=== PATIENT | male | born 1955 | race Caucasian/White ===

== ENCOUNTER 2018-04-11 10:00 | Outpatient (RCR) | payer OTHER, MEDICAID, SELFPAY | END 2018-04-19 11:57 | LOC: CAR 10:00 | PROVIDERS: PCP Family Medicine; Visit Provider Family Medicine | DX: Z95.5 Presence of coronary angioplasty implant and graft (principal) | CPT/HCPCS: 93798 ==

== ENCOUNTER → 2020-12-02 12:52 | Outpatient (CLI) | payer MEDICARE, SELFPAY ==
[2020-12-03 09:20] LABS: Add Manual Diff / Slide Review NO; Basophils Absolute Auto 100 /uL (0-100); Basophils Percent Auto 1.2 % (0-2); Eosinophils Absolute Auto 200 /uL (0-450); Eosinophils Percent Auto 3.1 % (2-4); Hematocrit 51.4 % (41-53); Hemoglobin 17.4 g/dL (13.5-17.5); Lymphocytes Absolute Auto 1900 /uL (1100-4500); Lymphocytes Percent Auto 26.2 % (25-40); Mean Corpuscular HGB Conc 33.9 % (30-36); Mean Corpuscular Hemoglobin 29.9 PG (26-34); Mean Corpuscular Volume 88.2 fL (80-100); Monocytes Absolute Auto 400 /uL (0-900); Monocytes Percent Auto 5.5 % (3-14); Neutrophils Absolute Auto 4700 /uL (1500-7000); Platelet Count 216 X10^3/uL (150-400); Red Blood Cell Count 5.83 X10^6/uL (4.5-5.9); Red Cell Distribution Width 13.6 % (11.6-14.8); White Blood Cell Count 7.3 X10^3/uL (4.5-11.0)
[2020-12-03 09:24] LABS: HEMOLYSIS < 15 (0-50)
[2020-12-03 09:29] LABS: Alanine Aminotransferase 25 IU/L (<50); Albumin 4.1 g/dL (3.5-5.0); Albumin Globulin Ratio 1.4 (1.0-2.8); Alkaline Phosphatase 80 U/L (38-126); Aspartate Aminotransferase 44 IU/L (17-59); BUN Creatinine Ratio 19.8 (6-22); Bilirubin Total 0.3 mg/dL (0.2-1.3); Blood Urea Nitrogen 17 mg/dL (9-20); Carbon Dioxide 30 mmol/L (22-32); Chloride 97 mmol/L (98-107); Cholesterol 134 mg/dL (140-199); Estimated Glomerular Filt Rate > 60.0 mL/min (>60); Globulin 2.9 g/dL (1.7-4.1); Glucose 312 mg/dL (80-110); HDL Cholesterol 26 mg/dL (40-60); LDL Cholesterol Calculated 46 mg/dL (<100); Potassium 4.1 mmol/L (3.4-5.1); Sodium 137 mmol/L (137-145); Triglycerides 309 mg/dL (35-150)
[2020-12-03 10:01] LABS: TSH w/ Reflex to FT4 1.49 uIU/mL (0.47-4.68)
[2020-12-03 10:05] LABS: Creatinine Urine Random 83.7 mg/dL
[2020-12-03 10:11] LABS: Microalbumin Urine Random > 19.0 mg/dL (0-1.6)
[2020-12-03 10:16] LABS: Prostate Specific Antigen Scrn 0.586 ng/mL (0.1-4.0)
[2020-12-03 15:25] LABS: Hemoglobin A1C% w Est Avg Glu 12.9 % (4.0-6.0)
== END ==
PROVIDERS: PCP Family Medicine; Visit Provider Family Medicine
DX: E11.9 Type 2 diabetes mellitus without complications (principal); I25.10 Atherosclerotic heart disease of native coronary artery without angina pectoris; Z12.5 Encounter for screening for malignant neoplasm of prostate
CPT/HCPCS: 80053; 80061; 82043; 82570; 83036; 84443; 85025; G0103

== ENCOUNTER → 2021-04-09 09:58 | Outpatient (CLI) | payer MEDICARE, SELFPAY ==
[2021-04-09 19:20] LABS: BUN Creatinine Ratio 19.6 (6-22); Blood Urea Nitrogen 19 mg/dL (9-20); Calcium 9.5 mg/dL (8.4-10.2); Carbon Dioxide 25 mmol/L (22-32); Chloride 105 mmol/L (98-107); Estimated Glomerular Filt Rate > 60.0 mL/min (>60); Glucose 194 mg/dL (80-110); HEMOLYSIS 17 (0-50); Potassium 4.6 mmol/L (3.4-5.1); Sodium 138 mmol/L (137-145)
== END ==
PROVIDERS: PCP Family Medicine; Visit Provider Family Medicine
DX: E11.9 Type 2 diabetes mellitus without complications (principal); I10 Essential (primary) hypertension; I25.10 Atherosclerotic heart disease of native coronary artery without angina pectoris
CPT/HCPCS: 80048; 83036

== ENCOUNTER → 2022-01-02 12:12 | Outpatient (CLI) | payer MEDICARE, SELFPAY ==
[2022-01-02 19:09] LABS: Prostate Specific Antigen Scrn 0.535 ng/mL (0.1-4.0)
[2022-01-02 19:25] LABS: Hemoglobin A1C% w Est Avg Glu 10.2 % (4.0-6.0)
== END ==
PROVIDERS: PCP Family Medicine; Visit Provider Physician Assistant
DX: E11.65 Type 2 diabetes mellitus with hyperglycemia (principal); Z12.5 Encounter for screening for malignant neoplasm of prostate
CPT/HCPCS: 83036; G0103

== ENCOUNTER → 2022-01-13 13:52 | Outpatient (CLI) | payer MEDICARE, SELFPAY ==
[2022-01-13 18:44] LABS: Add Manual Diff / Slide Review NO; Basophils Absolute Auto 0 /uL (0-100); Basophils Percent Auto 0.4 % (0-2); Eosinophils Absolute Auto 200 /uL (0-450); Eosinophils Percent Auto 2.4 % (2-4); Hematocrit 51.9 % (41-53); Hemoglobin 17.4 g/dL (13.5-17.5); Lymphocytes Absolute Auto 2000 /uL (1100-4500); Lymphocytes Percent Auto 30.9 % (25-40); Mean Corpuscular HGB Conc 33.5 % (30-36); Mean Corpuscular Hemoglobin 29.3 PG (26-34); Mean Corpuscular Volume 87.4 fL (80-100); Monocytes Absolute Auto 400 /uL (0-900); Monocytes Percent Auto 6.4 % (3-14); Neutrophils Absolute Auto 3900 /uL (1500-7000); Neutrophils Percent Auto 59.9 % (50-75); Platelet Count 211 X10^3/uL (150-400); Red Blood Cell Count 5.94 X10^6/uL (4.5-5.9); Red Cell Distribution Width 14.1 % (11.6-14.8); White Blood Cell Count 6.5 X10^3/uL (4.5-11.0)
[2022-01-13 19:03] LABS: Alanine Aminotransferase 35 IU/L (<50); Albumin 4.7 g/dL (3.5-5.0); Albumin Globulin Ratio 1.6 (1.0-2.8); Alkaline Phosphatase 69 U/L (38-126); Aspartate Aminotransferase 42 IU/L (17-59); BUN Creatinine Ratio 24.5 (6-22); Bilirubin Total 0.7 mg/dL (0.2-1.3); Blood Urea Nitrogen 26 mg/dL (9-20); Calcium 9.7 mg/dL (8.4-10.2); Carbon Dioxide 25 mmol/L (22-32); Chloride 100 mmol/L (98-107); Estimated Glomerular Filt Rate > 60 mL/min (>60); Globulin 2.9 g/dL (1.7-4.1); Glucose 128 mg/dL (80-110); HEMOLYSIS 17 (0-50); Magnesium 2.1 mg/dL (1.6-2.3); Potassium 4.4 mmol/L (3.4-5.1); Sodium 137 mmol/L (137-145); Total Protein 7.6 g/dL (6.3-8.2)
[2022-01-13 19:23] LABS: Vitamin D 25 Hydroxy (D3) 26.4 ng/mL (30.0-100.0)
== END ==
PROVIDERS: PCP Family Medicine; Visit Provider Physician Assistant
DX: I25.10 Atherosclerotic heart disease of native coronary artery without angina pectoris (principal); Z12.5 Encounter for screening for malignant neoplasm of prostate; E55.9 Vitamin D deficiency, unspecified; E11.65 Type 2 diabetes mellitus with hyperglycemia; I10 Essential (primary) hypertension; I95.2 Hypotension due to drugs; R53.83 Other fatigue
CPT/HCPCS: 80053; 82306; 83735; 85025; G0103

== ENCOUNTER 2022-01-23 21:17 | Observation (INO) | payer MEDICARE, SELFPAY ==
[2022-01-23 21:21] VITALS: BP 171/96; PULSE 92; RESP 16; TEMP 36.3; O2SAT 96; BMI 30.7
--- NOTE | 2022-01-23 21:43 | DI.CT.S_ITS ---
PROCEDURE: CT ANGIO HEAD AND NECK INDICATIONS: L side facial droop TECHNIQUE: After the administration of intravenous contrast, 1 mm thick sections acquired from the aortic arch through the [place]. Post-contrast 4.5 mm thick sections then re-acquired from the foramen magnum to the vertex. 3-dimensional ymxdkom-oxblqmqbf-qislhtrquh (MIP) and/or volume rendering reformats were acquired of the central intracranial vasculature and neck separately. For radiation dose reduction, the following was used: automated exposure control, adjustment of mA and/or kV according to patient size. COMPARISON: [facility], CT, CT HEAD/BRAIN WO CON, 01/23/2022, 21:45. FINDINGS: Image quality: Excellent. HEAD CT ANGIOGRAPHY: Anterior circulation: Intracranial internal carotid arteries are normal in size and flow. The flow within the paired anterior cerebral arteries is normal and symmetric. The flow within the middle cerebral arteries is normal and symmetric. The anterior communicating artery is seen. No aneurysms are seen. No area of abnormal intracranial enhancement is seen. Posterior circulation: Visualized portions of the vertebral arteries demonstrate normal caliber, and join to form a normal appearing basilar artery. Flow within the posterior cerebral arteries is normal and symmetric. No aneurysms are seen. NECK CT ANGIOGRAPHY: Carotid system: The great vessels demonstrate a conventional anatomy as they arise from the aortic arch. The origins of the common carotid arteries appear patent. The common carotid arteries demonstrate normal caliber and courses. The bifurcation regions are both widely patent. The internal carotid arteries demonstrate normal calibers and courses. Posterior circulation: The origins of the vertebral arteries both appear widely patent. The more superior extracranial portions of both vertebral arteries also demonstrate normal courses and calibers. They join to form a normal appearing basilar artery. Soft tissues: Visualized neck soft tissues demonstrate no suspicious abnormalities. Bones: No suspicious bony lesions. Visualized cervical spine appears normally aligned. IMPRESSION: 1. No area of abnormal intracranial enhancement. No CT evidence of acute intracranial bleed, midline shift or mass effect. 2. No hemodynamically significant stenosis or aneurysm is seen in intracranial circulation. 3. No hemodynamically significant stenosis or aneurysm is seen in bilateral neck arteries. Any quantitative measurements of stenosis were performed using NASCET criteria. Dictated by: Justice Hood M.D. on 01/23/2022 at 22:18 Approved by: Justice Hood M.D. on 01/23/2022 at 22:21
--- NOTE | 2022-01-23 21:43 | DI.CT.S_ITS ---
PROCEDURE: CT HEAD/BRAIN WO CON INDICATIONS: L side facial droop TECHNIQUE: Noncontrast 4.5 mm thick angled axial sections acquired from the foramen magnum to the vertex, with coronal and sagittal reformats. For radiation dose reduction, the following was used: automated exposure control, adjustment of mA and/or kV according to patient size. COMPARISON: None. FINDINGS: Image quality: Excellent. CSF spaces: Basal cisterns are patent. No extra-axial fluid collections. The ventricles are symmetric in size and shape. Brain: No intracranial bleeds or masses. There is cerebral volume loss for age, with resultant ventricular and sulcal prominence. There are periventricular and deep white matter chronic small vessel ischemic changes. There is intracranial internal carotid artery atherosclerosis. Skull and face: Calvarium and visualized facial bones appear intact, without suspicious lesions. Sinuses: Visualized sinuses and mastoids are clear. IMPRESSION: 1. No CT evidence of acute intracranial abnormalities. 2. Age-appropriate atrophy and mild white matter chronic small vessel ischemic changes. Dictated by: Justice Hood M.D. on 01/23/2022 at 22:16 Approved by: Justice Hood M.D. on 01/23/2022 at 22:17
--- NOTE | 2022-01-23 22:01 | PC.NURSE ---
pt noted with left side facial droop asymmetrical smile, unable to completely close left eye, left sided facial numbness, pt states tingling and numbness in other extremities normal for his neruopathy
[2022-01-23 22:03] LABS: Add Manual Diff / Slide Review NO; Basophils Absolute Auto 100 /uL (0-100); Basophils Percent Auto 1.3 % (0-2); Eosinophils Absolute Auto 300 /uL (0-450); Eosinophils Percent Auto 3.9 % (2-4); Hematocrit 47.5 % (41-53); Hemoglobin 16.3 g/dL (13.5-17.5); Lymphocytes Absolute Auto 2200 /uL (1100-4500); Lymphocytes Percent Auto 30.3 % (25-40); Mean Corpuscular HGB Conc 34.4 % (30-36); Mean Corpuscular Hemoglobin 29.4 PG (26-34); Mean Corpuscular Volume 85.7 fL (80-100); Monocytes Absolute Auto 400 /uL (0-900); Monocytes Percent Auto 5.4 % (3-14); Neutrophils Absolute Auto 4300 /uL (1500-7000); Neutrophils Percent Auto 59.1 % (50-75); Platelet Count 190 X10^3/uL (150-400); Red Blood Cell Count 5.54 X10^6/uL (4.5-5.9); Red Cell Distribution Width 14.4 % (11.6-14.8); White Blood Cell Count 7.3 X10^3/uL (4.5-11.0)
[2022-01-23 22:11] LABS: Prothrombin Time 11.7 SECONDS (10.1-12.7)
[2022-01-23 22:13] LABS: PTT Partial Thromboplastin Tim 37 SECONDS (26.4-36.2)
[2022-01-23 22:17] LABS: Alanine Aminotransferase 30 IU/L (<50); Albumin 4.3 g/dL (3.5-5.0); Albumin Globulin Ratio 1.4 (1.0-2.8); Alkaline Phosphatase 50 U/L (38-126); Aspartate Aminotransferase 36 IU/L (17-59); BUN Creatinine Ratio 18.8 (6-22); Bilirubin Total 0.6 mg/dL (0.2-1.3); Blood Urea Nitrogen 18 mg/dL (9-20); Calcium 9.2 mg/dL (8.4-10.2); Carbon Dioxide 21 mmol/L (22-32); Chloride 106 mmol/L (98-107); Creatine Kinase 102 U/L (55-170); Estimated Glomerular Filt Rate > 60 mL/min (>60); Glucose 129 mg/dL (80-110); Lipase 71 U/L (23-300); Potassium 4.1 mmol/L (3.4-5.1); Sodium 137 mmol/L (137-145); Total Protein 7.3 g/dL (6.3-8.2)
[2022-01-23 22:26] LABS: Ethanol (ETOH) < 10 mg/dL
[2022-01-23 22:28] LABS: Troponin I < 0.012 ng/mL (0.01-0.034)
[2022-01-23 22:32] LABS: CKMB % Relative Index 1.8 % (1.5-5.0); Creatine Kinase MB 1.81 ng/mL (<2.37); HEMOLYSIS 19 (0-50)
--- NOTE | 2022-01-23 22:49 | ED.NEUROSD ---
HPI - Neuro Symptoms/Deficit General Chief Complaint: Neuro Symptoms/Deficit Stated Complaint: Possible stroke Time Seen by Provider: 01/23/22 21:41 Source: patient Mode of arrival: Ambulatory History of Present Illness HPI Narrative: Patient is a 66-year-old male who is here for evaluation high potential stroke. He states that earlier this week he had some episodes where he was having some vision changes. He does wear corrective lenses but felt like they were not working appropriately has also some lightheadedness. He states this was about the time that he started cyclobenzaprine that was ordered by his primary provider. He is unsure if this started this medication and his vision and lightheadedness were related. Earlier today his states that he was having some problems speaking. Patient also thought that he was having some word-finding issues. His the day went on he started have drooping of the left side of his face. This occurred more than 4-1/2 hours ago. Has been persistent since then. 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 He is followed by the [facility] for this. He denies any new extremity neurologic issues. On Anticoagulants: No Related Data Home Medications Medication Instructions Recorded Confirmed aspirin 81 mg tablet,delayed 81 mg PO DAILY 11/27/20 01/24/22 release (Enteric Coated Aspirin) semaglutide (Ozempic) mg SUBCUT 01/23/22 metformin 1,000 mg tablet 1,000 mg PO BID 01/24/22 01/24/22 Previous Rx's Medication Instructions Recorded nitroglycerin 0.4 mg sublingual 0.4 mg SUBLINGUAL Q5M PRN #30 tab 04/15/21 tablet atorvastatin 40 mg tablet See Rx Instructions .ROUTE 07/02/21 .COMPLEX #30 tab empagliflozin 25 mg tablet See Rx Instructions .ROUTE 08/04/21 (Jardiance) .COMPLEX #30 tab cyclobenzaprine 5 mg tablet 5 - 10 mg PO TID PRN #40 tab 01/13/22 cholecalciferol (vitamin D3) 25 25 mcg PO DAILY #30 cap 01/14/22 mcg (1,000 unit) capsule Allergies Allergy/AdvReac Type Severity Reaction Status Date / Time lisinopril Allergy Cough Verified 01/13/22 13:23 lithium AdvReac Severe tremmors Verified 01/13/22 13:23 venlafaxine [From Effexor] AdvReac Severe Muscle Verified 01/13/22 13:23 stiffness and weakness. Review of Systems Constitutional Constitutional: Denies frequent falls and Denies headache(s) Eyes Eyes: Reports change in vision ENT Ears, Nose, Mouth, and Throat: Denies headache(s) Cardiovascular Cardiovascular: Denies chest pain, Denies rapid heart rate and Denies dyspnea Respiratory Respiratory: Denies cough and Denies dyspnea Gastrointestinal Gastrointestinal: Reports system reviewed and no additional complaints, except as documented Musculoskeletal Musculoskeletal: Reports system reviewed and no additional complaints, except as documented Integumentary/Breasts Skin/Breast: Reports system reviewed and no additional complaints, except as documented Neurologic Neurologic: Reports system reviewed and no additional complaints, except as documented, Reports as per HPI, Denies frequent falls and Denies headache(s) Psychiatric Psychiatric: Reports system reviewed and no additional complaints, except as documented Hematologic/Lymphatic On Anticoagulants: No Allergic/Immunologic Allergic/Immunologic: Reports system reviewed and no additional complaints, except as documented Patient History Medical History Bipolar I disorder Bronchitis with chronic airway obstruction (~11/2017) Charcot Dania Tooth muscular atrophy Chronic post-traumatic stress disorder (PTSD) Facial palsy Pulmonary emphysema Surgical History History of appendectomy History of total right hip replacement Social History details: Adopted, family history unknown household members: significant other Smoking Status: Former smoker substance use type: former substance user Smoking Status: Former smoker alcohol intake frequency: 0-2 drinks per day Substance Use Type: does not use Exam Initial Vital Signs Initial Vital Signs: Vital Signs Temperature 97.4 F L 01/23/22 21:21 Pulse Rate 92 H 01/23/22 21:21 Respiratory Rate 16 01/23/22 21:21 Blood Pressure 171/96 H 01/23/22 21:21 Pulse Oximetry 96 01/23/22 21:21 Const General: cooperative, comfortable and well developed HENMT Head: normal to inspection and normocephalic Eyes Pupils: PERRL EOM: EOM intact bilaterally Resp Effort & Inspection: normal respiratory effort Auscultation: clear to auscultation bilaterally Cardio Rate: regular rate Rhythm: regular rhythm GI Inspection: normal to inspection Skin General: no rashes or lesions noted Neuro General: patient alert, patient awake, patient oriented x3 and moves all extremities Cognition: normal cognition Extrem General: normal to inspection and capillary refill normal Scores NIH Stroke Scale Level of Conciousness: Alert, keenly responsive Ask month/age: Answers both questions correctly. Open/close eyes, close hand: Performs both tasks correctly Best gaze horizontal: Normal Visual payton: No visual loss Facial palsy: Complete paralysis, absence of movement in the upper and lower face Left arm drift: No drift for full 10 sec Right arm drift: No drift for full 10 sec Left leg drift: No drift for full 5 sec Right leg drift: No drift for full 5 sec Limb ataxia: Absent Sensory on face/arms/legs: Normal, no sensory loss Best language: No aphasia, normal Dysarthria: Normal Extinction or inattention: No abnormality Total NIH Stroke scale score: 3 Course Orders Ordered: ED Orders 01/23/22 21:43 CT angio head and neck Stat CT head/brain wo con Stat EKG-12 Lead Stat 01/23/22 21:55 Complete Blood Count AUTO DIFF Stat Comprehensive Metabolic Panel Stat Ethanol (ETOH) Stat Lipase Stat Partial Thromboplastin Time Stat Prothrombin Time INR Stat Troponin & CK Cardiac Panel Stat 01/23/22 23:43 MR stroke Stat 01/24/22 00:33 COVID19 -Nasal RAPID/Pre-Proc Stat Acetaminophen (Acetaminophen 325 Mg Tablet) 650 mg PO Q6HR [facility] Aspirin (Aspirin Ec 81 Mg Tablet) 81 mg PO DAILY [facility] Atorvastatin Calcium (Atorvastatin 20 Mg Tablet) 40 mg PO BEDTIME [facility] Cyclobenzaprine HCl (Cyclobenzaprine 10 Mg Tablet) 5 mg PO TID PRN PRN Reason: Muscle Spasm Last Admin: 01/24/22 01:39 Dose: 5 mg Documented by: MEGAN Naloxone HCl (Naloxone 0.4 Mg/Ml Vial) 0.2 mg IV Q2MIN PRN PRN Reason: Opiate Reversal Naproxen (Naproxen 250 Mg Tablet) 500 mg PO BID PRN PRN Reason: pain Sodium Chloride (Sodium Chloride 0.9% Flush) 10 ml IV BID [facility] Last Admin: 01/24/22 01:39 Dose: 10 ml Documented by: MEGAN Discontinued Medications Non-Formulary Medication (Cyclobenzaprine) 5 mg PO TID PRN PRN Reason: muscle spasm Vital Signs Vital signs: Vital Signs - 8 hr 01/23/22 21:21 Temperature 97.4 F L Pulse Rate 92 H Respiratory Rate 16 Blood Pressure 171/96 H Pulse Oximetry 96 MDM - Neuro Symptoms/Deficit Lab Data Attestation: I reviewed the patient's lab results. Result diagrams: 01/23/22 21:55 01/23/22 21:55 Labs: Lab Results 01/23/22 01/23/22 01/23/22 Range/Units 21:55 21:55 21:55 WBC 7.3 (4.5-11.0) X10^3/uL RBC 5.54 (4.5-5.9) X10^6/uL Hgb 16.3 (13.5-17.5) g/dL Hct 47.5 (41-53) % MCV 85.7 (80-100) fL MCH 29.4 (26-34) PG MCHC 34.4 (30-36) % RDW 14.4 (11.6-14.8) % Plt Count 190 (150-400) X10^3/uL Neut % (Auto) 59.1 (50-75) % Lymph % (Auto) 30.3 (25-40) % [place] % (Auto) 5.4 (3-14) % Eos % (Auto) 3.9 (2-4) % Baso % (Auto) 1.3 (0-2) % Neut # (Auto) 4300 (4525-3253) /uL Lymph # (Auto) 2200 (9336-2361) /uL [place] # (Auto) 400 (0-900) /uL Eos # (Auto) 300 (0-450) /uL Baso # (Auto) 100 (0-100) /uL PT 11.7 (10.1-12.7) SECONDS INR 1.0 (0.9-1.3) APTT 37 H (26.4-36.2) SECONDS Sodium 137 (137-145) mmol/L Potassium 4.1 (3.4-5.1) mmol/L Chloride 106 (98-107) mmol/L Carbon Dioxide 21 L (22-32) mmol/L BUN 18 (9-20) mg/dL Creatinine 0.96 (0.66-1.25) mg/dL Estimated GFR > 60 (>60) mL/min BUN/Creatinine Ratio 18.8 (6-22) Glucose 129 H (80-110) mg/dL Calcium 9.2 (8.4-10.2) mg/dL Total Bilirubin 0.6 (0.2-1.3) mg/dL AST 36 (17-59) IU/L ALT 30 (<50) IU/L Alkaline Phosphatase 50 (38-126) U/L Total Creatine Kinase 102 (55-170) U/L CK-MB (CK-2) 1.81 (<2.37) ng/mL CK-MB (CK-2) Rel Index 1.8 (1.5-5.0) % Troponin I < 0.012 (0.01-0.034) ng/mL Total Protein 7.3 (6.3-8.2) g/dL Albumin 4.3 (3.5-5.0) g/dL Globulin 3.0 (1.7-4.1) g/dL Albumin/Globulin Ratio 1.4 (1.0-2.8) Lipase 71 (23-300) U/L Ethyl Alcohol < 10 ( - 10) mg/dL SARS-CoV-2 (PCR) (Negative) 01/23/22 Range/Units 23:50 WBC (4.5-11.0) X10^3/uL RBC (4.5-5.9) X10^6/uL Hgb (13.5-17.5) g/dL Hct (41-53) % MCV (80-100) fL MCH (26-34) PG MCHC (30-36) % RDW (11.6-14.8) % Plt Count (150-400) X10^3/uL Neut % (Auto) (50-75) % Lymph % (Auto) (25-40) % [place] % (Auto) (3-14) % Eos % (Auto) (2-4) % Baso % (Auto) (0-2) % Neut # (Auto) (7203-2890) /uL Lymph # (Auto) (8740-2903) /uL [place] # (Auto) (0-900) /uL Eos # (Auto) (0-450) /uL Baso # (Auto) (0-100) /uL PT (10.1-12.7) SECONDS INR (0.9-1.3) APTT (26.4-36.2) SECONDS Sodium (137-145) mmol/L Potassium (3.4-5.1) mmol/L Chloride (98-107) mmol/L Carbon Dioxide (22-32) mmol/L BUN (9-20) mg/dL Creatinine (0.66-1.25) mg/dL Estimated GFR (>60) mL/min BUN/Creatinine Ratio (6-22) Glucose (80-110) mg/dL Calcium (8.4-10.2) mg/dL Total Bilirubin (0.2-1.3) mg/dL AST (17-59) IU/L ALT (<50) IU/L Alkaline Phosphatase (38-126) U/L Total Creatine Kinase (55-170) U/L CK-MB (CK-2) (<2.37) ng/mL CK-MB (CK-2) Rel Index (1.5-5.0) % Troponin I (0.01-0.034) ng/mL Total Protein (6.3-8.2) g/dL Albumin (3.5-5.0) g/dL Globulin (1.7-4.1) g/dL Albumin/Globulin Ratio (1.0-2.8) Lipase (23-300) U/L Ethyl Alcohol ( - 10) mg/dL SARS-CoV-2 (PCR) Negative (Negative) Point of Care Testing Glucose POC [address] scan - head: Radiologist's Impression: [address] [address] [address] Scan Report Signed Patient: Robin Little MR#: [id number] : 1955 Acct:[id number] Age/Sex: 66 / M Date of Service: 01/23/22 Loc: ED Accession Number: [id number] ?? Procedure: CT head/brain wo con Ordering Provider: Pastor Araya D.O. PROCEDURE:? CT HEAD/BRAIN WO CON ? INDICATIONS:? L side facial droop ? TECHNIQUE:? Noncontrast 4.5 mm thick angled axial sections acquired from the foramen magnum to the vertex, with coronal and sagittal reformats.? For radiation dose reduction, the following was used:? automated exposure control, adjustment of mA and/or kV according to patient size.? ? COMPARISON:? None. ? FINDINGS:? Image quality:? Excellent.? ? CSF spaces:? Basal cisterns are patent.? No extra-axial fluid collections.? The ventricles are symmetric in size and shape.? ? Brain:? No intracranial bleeds or masses.? There is cerebral volume loss for age, with resultant ventricular and sulcal prominence.? There are periventricular and deep white matter chronic small vessel ischemic changes.? There is intracranial internal carotid artery atherosclerosis.? ? Skull and face:? Calvarium and visualized facial bones appear intact, without suspicious lesions.? ? Sinuses:? Visualized sinuses and mastoids are clear.? ? IMPRESSION:? 1.? No CT evidence of acute intracranial abnormalities. 2.? Age-appropriate atrophy and mild white matter chronic small vessel ischemic changes. ? ? Dictated by: Justice Hood M.D. on 01/23/2022 at 22:16 ? ? Approved by: Justice Hood M.D. on 01/23/2022 at 22:17?? CTA - brain/neck: Radiologist's Impression: [place] [address] CT Scan Report Signed Patient: Robin Little MR#: [id number] : 1955 Acct:[id number] Age/Sex: 66 / M Date of Service: 01/23/22 Loc: ED Accession Number: [id number] ?? Procedure: CT angio head and neck Ordering Provider: Pastor Araya D.O. PROCEDURE:? CT ANGIO HEAD AND NECK ? INDICATIONS:? L side facial droop ? TECHNIQUE:? After the administration of intravenous contrast, 1 mm thick sections acquired from the aortic arch through the [place] of [place].? Post-contrast 4.5 mm thick sections then re-acquired from the foramen magnum to the vertex.? 3-dimensional awdolrl-oruasndik-bnhdqywslg (MIP) and/or volume rendering reformats were acquired of the central intracranial vasculature and neck separately. For radiation dose reduction, the following was used:? automated exposure control, adjustment of mA and/or kV according to patient size.? ? COMPARISON:? [facility], CT, CT HEAD/BRAIN WO CON, 01/23/2022, 21:45. ? FINDINGS:? Image quality:? Excellent.? ? ? HEAD CT ANGIOGRAPHY:? Anterior circulation:? Intracranial internal carotid arteries are normal in size and flow.? The flow within the paired anterior cerebral arteries is normal and symmetric.? The flow within the middle cerebral arteries is normal and symmetric.? The anterior communicating artery is seen.? No aneurysms are seen.? No area of abnormal intracranial enhancement is seen. ? Posterior circulation:? Visualized portions of the vertebral arteries demonstrate normal caliber, and join to form a normal appearing basilar artery.? Flow within the posterior cerebral arteries is normal and symmetric.? No aneurysms are seen.? ? NECK CT ANGIOGRAPHY:? Carotid system:? The great vessels demonstrate a conventional anatomy as they arise from the aortic arch.? The origins of the common carotid arteries appear patent.? The common carotid arteries demonstrate normal caliber and courses.? The bifurcation regions are both widely patent.? The internal carotid arteries demonstrate normal calibers and courses.? ? Posterior circulation:? The origins of the vertebral arteries both appear widely patent.? The more superior extracranial portions of both vertebral arteries also demonstrate normal courses and calibers.? They join to form a normal appearing basilar artery.? ? Soft tissues:? Visualized neck soft tissues demonstrate no suspicious abnormalities.? ? Bones:? No suspicious bony lesions.? Visualized cervical spine appears normally aligned.? IMPRESSION:? 1. No area of abnormal intracranial enhancement.? No CT evidence of acute intracranial bleed, midline shift or mass effect. 2. No hemodynamically significant stenosis or aneurysm is seen in intracranial circulation. 3. No hemodynamically significant stenosis or aneurysm is seen in bilateral neck arteries.? ? Any quantitative measurements of stenosis were performed using NASCET criteria.? ? ? Dictated by: Justice Hood M.D. on 01/23/2022 at 22:18 ? ? Approved by: Justice Hood M.D. on 01/23/2022 at 22:21?? ECG Data Attestation: I personally reviewed and interpreted this ECG as follows: Interpretation: Sinus rhythm Ventricular rate is 71 Normal axis Normal QRS Normal QTC No ST T wave changes MDM Narrative Medical decision making narrative: Onset is symptoms started greater than 4-1/2 hours ago. He does have complete left-sided facial paralysis which is concerning for Valentino's palsy. He does have a progressive neurologic Charcot Dania tooth diagnosis. Head CT is unremarkable. CTA of his head neck is also unremarkable. I suspect that is presenting symptoms today are Valentino's palsy however given his age and the fact that he had some vision disturbance is earlier in the week and also potential speech disturbances patient does require admission to the hospital for further evaluation and treatment of potential CVA. Discussed the case with hospitalist who will admit for further evaluation. I did discuss the need for admission with the patient he expressed understanding and agreement as well. Discharge Plan Departure Patient Disposition: Admitted as Observation Clinical Impression: Facial droop, Dysarthria Admit Date/Time: 01/23/22 23:50 Admit Provider: Evi Castro
--- NOTE | 2022-01-23 23:43 | DI.MRI.S_ITS ---
PROCEDURE: MR HEAD/BRAIN WO CON INDICATIONS: L sided facial droop eval for CVA TECHNIQUE: Non-contrast axial T1 spin echo, axial T2 fast spin echo, sagittal and axial FLAIR, coronal T2 fast spin echo, axial gradient echo, axial diffusion and ADC through the brain. COMPARISON: [facility], CT, CT ANGIO HEAD AND NECK, 01/23/2022, 21:45. [facility], CT, CT HEAD/BRAIN WO CON, 01/23/2022, 21:45. FINDINGS: Image quality: Excellent. CSF spaces: Ventricles appear symmetric in size and shape. Basal cisterns are patent. No extra-axial fluid collections. Brain: No intracranial bleeds or mass effects. There is cerebral volume loss for age. There are periventricular and deep white matter chronic small vessel ischemic changes. Brainstem appears normal. Diffusion-weighted images show no acute ischemic insults. No chronic ischemic insults. Normal intravascular flow voids are present. Skull and face: Calvarial bone marrow is normal in signal. Orbits are normal. Sinuses: Sinuses demonstrate mucous retention cyst versus polyp in the right maxillary sinus. Minimal bilateral trace maxillary sinus mucosal thickening is present. IMPRESSION: 1. No acute intracranial process. No acute ischemia. 2. Mild atrophy and chronic microvascular ischemic changes. Dictated by: Maggi Mackay M.D. on 01/24/2022 at 9:21 Approved by: Maggi Mackay M.D. on 01/24/2022 at 9:23
[2022-01-24 00:30] VITALS: BP 134/93; PULSE 74; RESP 18; TEMP 36.3; O2SAT 96
--- NOTE | 2022-01-24 00:33 | P.HP_ITS ---
History of Present Illness History of Present Illness Date Patient Seen: 01/23/22 Date of Onset of Symptoms: 01/22/22 Chief complaint: Possible stroke Narrative: Mr. Little is a 66-year-old very pleasant male with type 2 diabetes mellitus and CMT muscular atrophy, emphysema started noticing left facial weakness and also palsy this morning. Patient having some vision difficulties 7 days back. Patient had a back sprain 9 days back where he was prescribed cyclobenzaprine and continued to improve with the use of that medication. Patient was started on Ozempic 2 weeks back for his diabetes. On further questioning patient confirms feeling dizzy, more unsteady gait, than usual, difficulty in reading secondary to blurred vision most likely started 7 days ago. Yesterday his friends told him that his left side of the face is droopy and probably having a stroke. Patient came to the ER for further evaluation after his confirmed that his left side of the face is not looking normal. In the ER patient did not show any other neurological symptoms. Patient denies any tingling numbness or other weakness. He he denies any falls or head trauma. He denies any tingling numbness anywhere else in the body. Patient did not had any such similar symptoms in the past. All other systems has been reviewed negative. Patient History Medical History Bipolar I disorder Bronchitis with chronic airway obstruction (~11/2017) Charcot Dania Tooth muscular atrophy Chronic post-traumatic stress disorder (PTSD) Facial palsy Pulmonary emphysema Surgical History History of appendectomy History of total right hip replacement Family & Social History Social History: Patient lives with his partner. No children. He was adopted. He works in IT department. Safety & Behavioral: Feels Safe in Current Yes Environment Tobacco & Substance use: Smoking Status Former smoker alcohol intake frequency 0-2 drinks per day Substance Use Type does not use Meds Home Medications and Allergies Home Medications Medication Instructions Recorded Confirmed Type aspirin 81 mg tablet,delayed 81 mg PO DAILY 11/27/20 01/24/22 History release (Enteric Coated Aspirin) nitroglycerin 0.4 mg sublingual 0.4 mg SUBLINGUAL Q5M PRN #30 tab 04/15/21 01/24/22 Rx tablet atorvastatin 40 mg tablet See Rx Instructions .ROUTE 07/02/21 01/24/22 Rx .COMPLEX #30 tab empagliflozin 25 mg tablet See Rx Instructions .ROUTE 08/04/21 01/24/22 Rx (Jardiance) .COMPLEX #30 tab cyclobenzaprine 5 mg tablet 5 - 10 mg PO TID PRN #40 tab 01/13/22 01/24/22 Rx cholecalciferol (vitamin D3) 25 25 mcg PO DAILY #30 cap 01/14/22 01/24/22 Rx mcg (1,000 unit) capsule semaglutide (Ozempic) 0.25 mg SUBCUT 01/23/22 History metformin 1,000 mg tablet 1,000 mg PO BID 01/24/22 01/24/22 History Allergies Allergy/AdvReac Type Severity Reaction Status Date / Time lisinopril Allergy Cough Verified 01/13/22 13:23 lithium AdvReac Severe tremmors Verified 01/13/22 13:23 venlafaxine [From Effexor] AdvReac Severe Muscle Verified 01/13/22 13:23 stiffness and weakness. Review of Systems Review of Systems Narrative: No chest pain, breathing difficulties, palpitations. Patient had chronic lower extremity issues related to his CMT. No abdominal pain. Twelve system comprehensive review of systems done, negative. Other than as mentioned in HPI. Exam Vital Signs (past 8 hours): - 01/23/22 21:21 Temperature 97.4 F L Pulse Rate 92 H Respiratory Rate 16 Blood Pressure 171/96 H Pulse Oximetry 96 Oxygen Delivery Method Room Air Objective Labs Result Diagrams: 01/23/22 21:55 01/23/22 21:55 Labs: Laboratory Results - last 24 hr 01/23/22 01/23/22 01/23/22 21:55 21:55 21:55 WBC 7.3 RBC 5.54 Hgb 16.3 Hct 47.5 MCV 85.7 MCH 29.4 MCHC 34.4 RDW 14.4 Plt Count 190 Neut % (Auto) 59.1 Lymph % (Auto) 30.3 [place] % (Auto) 5.4 Eos % (Auto) 3.9 Baso % (Auto) 1.3 Neut # (Auto) 4300 Lymph # (Auto) 2200 [place] # (Auto) 400 Eos # (Auto) 300 Baso # (Auto) 100 PT 11.7 INR 1.0 APTT 37 H Sodium 137 Potassium 4.1 Chloride 106 Carbon Dioxide 21 L BUN 18 Creatinine 0.96 Estimated GFR > 60 BUN/Creatinine Ratio 18.8 Glucose 129 H Calcium 9.2 Total Bilirubin 0.6 AST 36 ALT 30 Alkaline Phosphatase 50 Total Creatine Kinase 102 CK-MB (CK-2) 1.81 CK-MB (CK-2) Rel Index 1.8 Troponin I < 0.012 Total Protein 7.3 Albumin 4.3 Globulin 3.0 Albumin/Globulin Ratio 1.4 Lipase 71 Ethyl Alcohol < 10 Assessment & Plan Assessment and plan (1) Facial palsy: Status: Acute (2) Facial droop: Status: Acute (3) Dysarthria: Status: Acute (4) Dizziness: Status: Acute Plan Admit patient under observation status for further evaluation Q.4 hours neuro checks MRI brain for further evaluation of the dizziness and change in vision, my concern for stroke is low Left facial palsy mostly Valentino's palsy Continue home medication If MRI brain is negative patient probably can be discharged with an outpatient follow-up Home medication reconciliation done DVT prophylaxis and GI prophylaxis addressed Care plan extensively discussed with the patient and his partner at bedside. Answered all questions. Time Spent With Patient Critical Care time: I spent a total of [] minutes of critical care time on this patient's care today; this time is exclusive of procedural time.
[2022-01-24 00:52] LABS: COVID19 -Nasal RAPID Negative (Negative)
[2022-01-24 01:13] VITALS: BMI 30.7
[2022-01-24] MEDS: CYCLOBENZAPRINE 10 MG TABLET 5 MG PO ×2 (01:39→09:43)
[2022-01-24] MEDS: SODIUM CHLORIDE 0.9% FLUSH 10 ML IV ×2 (01:39→08:31)
[2022-01-24 04:24] VITALS: BP 145/81; PULSE 89; RESP 15; TEMP 36.7; O2SAT 95
[2022-01-24 08:00] VITALS: BP 107/70; PULSE 66; RESP 14; TEMP 35.9; O2SAT 98
--- NOTE | 2022-01-24 08:30 | DI.ECHO.S_ITS ---
[facility]---------+ [facility] +---------+ : : [address] : : : : [id number] : : : : Phone: [phone]+ Echocardiogram Report + + :Name: YOSELYN THURMAN Study Date: 01/24/2022 Height: 80 in : :[facility] ReadingLocation: Weight: 279 lb : : Gender: Male BSA: 2.6 m2 : :: 1955 Age: 66 yrs BP: 119/77 mmHg: :Reason For Study: POSSIBLE STROKE : : Performed By: Hilary Murray : :Referring: UNSPECIFIED : + + Interpretation Summary The left ventricle is normal in size. Left ventricular systolic function is normal. The ejection fraction is estimated to be 60-65%. No obvious focal wall motion abnormalities. Diastolic parameters suggest probable normal left ventricular diastolic function and normal filling pressures. The right ventricle is normal in size and function. The right ventricular systolic pressure is estimated to be at least 21 mmHg based on an estimated right atrial pressure of 3 mm Hg. Borderline left atrial enlargement. Right atrial size is normal. Doppler interrogation and injection of saline echo contrast shows no evidence for an interatrial shunt. There is no significant valvular heart disease. The ascending aorta is mildly enlarged. Procedure: A two-dimensional transthoracic echocardiogram with color flow and Doppler was performed. The study quality was technically adequate. There is no prior echocardiogram noted for this patient. A saline contrast injection was performed to assess for cardiac shunting. The patient was in normal sinus rhythm during the exam. The patient had occasional PVCs during the exam. Left Ventricle: The left ventricle is normal in size. Left ventricular wall thickness is borderline increased. There is no ventricular septal defect visualized. Left ventricular systolic function is normal. The ejection fraction is estimated to be 60-65%. No obvious focal wall motion abnormalities. Diastolic parameters suggest probable normal left ventricular diastolic function and normal filling pressures. Right Ventricle: The right ventricle is normal in size and function. Atria: Borderline left atrial enlargement. Right atrial size is normal. Doppler interrogation and injection of saline echo contrast shows no evidence for an interatrial shunt. Bubble study was captured on image frame(s) # 64. Mitral Valve: The mitral valve leaflets are slightly calcified. There is trace mitral regurgitation. Aortic Valve: The aortic valve is not well visualized. The aortic valve opens well. The aortic valve is slightly calcified. No aortic regurgitation is present. Tricuspid Valve: The tricuspid valve leaflets are thin and pliable. The right ventricular systolic pressure is estimated to be at least 21 mmHg based on an estimated right atrial pressure of 3 mm Hg. Pulmonic Valve: The pulmonic valve is not well visualized. There is no significant valvular heart disease. Great Vessels: The aortic root is normal size. The ascending aorta is mildly enlarged. The aortic arch is normal in size. The IVC is of normal diameter and collapses greater than 50% with a sniff. This suggests a low right atrial pressure of 3 mm Hg. Pericardium/ Pleura There is no pericardial effusion. There is an anterior echo-free space consistent with a fat pad. MMode/2D Measurements & Calculations LVIDd: 5.4 cm LVOT diam: 2.6 cm LVIDs: 3.5 cm Ao root diam: 3.8 cm FS: 33.8 % asc Aorta Diam: 3.9 cm EPSS: 1.1 cm Ao Arch Diam (Prox Trans): 3.0 cm IVSd: 1.0 cm LVPWd: 0.81 cm LV mason. diameter/BSA (cm/m^2): 2.0 LV sys. diameter/BSA (cm/m^2): 1.3 LA A2 area: 26.3 cm2 RA long axis: 4.8 cm LA A4 area: 20.8 cm2 RA area: 19.4 cm2 LA length (vol): 5.4 cm RA vol: 67.6 ml LA vol: 85.7 ml RA : 25.5 ml/m2 LA vol index: 32.3 ml/m2 IVC diam: 1.5 cm RVD1 (basal): 3.5 cm TAPSE: 2.2 cm Doppler Measurements & Calculations Ao V2 max: 119.8 cm/sec LVOT Max Darrell: 96.9 cm/sec Ao V2 mean: 96.3 cm/sec LV V1 max P.8 mmHg Ao max P.7 mmHg LV V1 VTI: 17.7 cm Ao mean P.9 mmHg MIC(I,D): 4.3 cm2 Ao V2 VTI: 22.5 cm MIC(V,D): 4.5 cm2 sev ratio: 0.79 MIC indexed to BSA (cm^2/m^2): 1.6 MV E max darrell: 70.8 cm/sec TR max darrell: 212.5 cm/sec MV A max darrell: 62.1 cm/sec TR max P.1 mmHg MV E/A: 1.1 PA V2 max: 89.8 cm/sec Med Peak E' Darrell: 8.9 cm/sec PA V2 mean: 60.8 cm/sec E/E' med: 7.9 PA mean P.6 mmHg Lat Peak E' Darrell: 8.9 cm/sec PA pr(Accel): 25.1 mmHg E/E' lat: 8.0 E/e' average: 8.0 MV dec time: 0.24 sec SV(LVOT): 97.6 ml Reading Physician:05:10 PM
[2022-01-24] MEDS: ASPIRIN EC 81 MG TABLET PO (09:43)
[2022-01-24 11:07] VITALS: O2SAT 97
[2022-01-24 12:00] VITALS: BP 119/77; PULSE 74; RESP 14; TEMP 36.3; O2SAT 94
--- NOTE | 2022-01-24 13:07 | CM.IDA ---
DCP Assessment Patient is 66 y/o male who presents to due to concern for TIA due to facial droop, trouble speaking and vision changes. Per MRI, concern for stroke has been ruled out and patient has dx of Valentino's Palsy. Per EMR, patient has hx of Charcot Dania Tooth Muscular Atrophy, PTSD, PE, and Bipolar 1 Disorder. Patient's PCP is Dr. Jamal Odonnell on [facility], patient has regular f/u with PCP with a f/u appt scheduled for 02/10/22. Patient has MCR insurance Patient presents as A/Ox4. SENIOR OFFICE ASSISTANT observes facial droop on left side of face. Patient states he feels fatigued. Patient endorses concern about catching the earliest ferry to return to [facility] with life partner by foot. Patient denies DCP needs and endorses and indicates that he wants to be discharged as soon as he is medically clear. Per Hazel HALE, medical clearance is dependent on ECHO results from 12pm. Plan: Possible d/c to home today with life partner once patient is medically clear. [facility] Main Discharge Planning/Care Management CM Discharge Assessment Start: 01/24/22 13:03 Freq: Status: Active Protocol: Document 01/24/22 13:04 LN (Rec: 01/24/22 13:07 LN [id number]) Discharge Planning Assessment Assigned Scientific Investigator GR[facility]aria Advance Directives? Yes Advance Directives on File No History Provided By Patient Has Patient been admitted in last 30 No days? Prior Living Arrangements House Household Members significant other Type of transporation used prior to Drives own vehicle admit Comment Patient plans to catch earliest [place] [facility]. Patient states they will need taxi to get to ferry terminal. Independent with ADL's Yes Is patient alert and oriented? Yes Discharge Plan Home Please Provide Date Initial DC 01/24/22 Assessment Was Performed
[2022-01-24 16:00] VITALS: BP 122/70; PULSE 78; RESP 17; TEMP 36.6; O2SAT 94
--- NOTE | 2022-01-24 16:42 | P.PN_ITS ---
Subjective Subjective Interval history: Patient's symptoms consistent with Valentino's palsy. The patient denies that this has ever happened before. He denies any hx of TIA or stroke. Exam Vital Signs (past 8 hours): - 01/24/22 11:07 01/24/22 12:00 01/24/22 16:00 Temperature 97.4 F L 97.8 F Pulse Rate 74 78 Respiratory Rate 14 17 Blood Pressure 119/77 122/70 Pulse Oximetry 97 94 94 Oxygen Delivery Method Room Air Oxygen Flow Rate 0 Const Other: Patient sitting up in bed comfortably upon my entering the room, in no apparent acute distress, with at bedside Eyes Other: No scleral icterus appreciated Neck Other: No carotid bruits appreciated Resp Other: Clear to auscultation bilaterally Cardio Other: RRR, with normal S1 and S2 heart sounds, and no extra heart sounds or murmurs appreciated GI Other: Soft, non-distended, non-tender, with bowel sounds present Skin Other: No grossly abnormal skin lesions noted Neuro Other: Left-sided facial movement and eyebrow raise limited, consistent with Valentino's palsy, with CN II-XII grossly intact, and no grossly focal neurological deficits Extrem Other: Palpable dorsalis pedis pulses bilaterally Objective Labs Result Diagrams: 01/23/22 21:55 01/23/22 21:55 Labs: Laboratory Results - last 24 hr 01/23/22 01/23/22 01/23/22 21:55 21:55 21:55 WBC 7.3 RBC 5.54 Hgb 16.3 Hct 47.5 MCV 85.7 MCH 29.4 MCHC 34.4 RDW 14.4 Plt Count 190 Neut % (Auto) 59.1 Lymph % (Auto) 30.3 [place] % (Auto) 5.4 Eos % (Auto) 3.9 Baso % (Auto) 1.3 Neut # (Auto) 4300 Lymph # (Auto) 2200 [place] # (Auto) 400 Eos # (Auto) 300 Baso # (Auto) 100 PT 11.7 INR 1.0 APTT 37 H Sodium 137 Potassium 4.1 Chloride 106 Carbon Dioxide 21 L BUN 18 Creatinine 0.96 Estimated GFR > 60 BUN/Creatinine Ratio 18.8 Glucose 129 H Calcium 9.2 Total Bilirubin 0.6 AST 36 ALT 30 Alkaline Phosphatase 50 Total Creatine Kinase 102 CK-MB (CK-2) 1.81 CK-MB (CK-2) Rel Index 1.8 Troponin I < 0.012 Total Protein 7.3 Albumin 4.3 Globulin 3.0 Albumin/Globulin Ratio 1.4 Lipase 71 Ethyl Alcohol < 10 SARS-CoV-2 (PCR) 01/23/22 23:50 WBC RBC Hgb Hct MCV MCH MCHC RDW Plt Count Neut % (Auto) Lymph % (Auto) [place] % (Auto) Eos % (Auto) Baso % (Auto) Neut # (Auto) Lymph # (Auto) [place] # (Auto) Eos # (Auto) Baso # (Auto) PT INR APTT Sodium Potassium Chloride Carbon Dioxide BUN Creatinine Estimated GFR BUN/Creatinine Ratio Glucose Calcium Total Bilirubin AST ALT Alkaline Phosphatase Total Creatine Kinase CK-MB (CK-2) CK-MB (CK-2) Rel Index Troponin I Total Protein Albumin Globulin Albumin/Globulin Ratio Lipase Ethyl Alcohol SARS-CoV-2 (PCR) Negative [facility] Medical History Bipolar I disorder Bronchitis with chronic airway obstruction (~11/2017) Charcot Dania Tooth muscular atrophy Chronic post-traumatic stress disorder (PTSD) Facial palsy Pulmonary emphysema Surgical History History of appendectomy History of total right hip replacement Social History details: Adopted, family history unknown household members: significant other Smoking Status: Former smoker substance use type: former substance user Assessment & Plan Assessment & Plan narrative: Assessment: 1. Valentino's palsy 2. TIA rule-out 3. DM II 4. Hyperlipidemia Plan: 1. Will start PO prednisone 60 mg once daily for 7 days, along with Valtrex 1000 mg tid for 7 days. 2. Brain imaging thus far unremarkable. Pending echocardiogram with bubble study results. 3. Insulin sliding scale inpatient. 4. Will continue home atherosclerotic protecting medications. VTE prophylaxis: SCD's Code: Full Code I have utilized all immediate available resources to obtain, update, or verify the patient's current medications. Time Spent With Patient Critical Care time: I spent a total of [] minutes of critical care time on this patient's care today ; this time is exclusive of procedural time. Quality MIPS - Admit I confirm the patient?s Advance Care Plan is present, Code status is documented, Surrogate decision maker is in patient?s record [If Yes, STOP here]: Yes
[2022-01-24] MEDS: valACYclovir 500 MG TABLET 1000 MG PO (17:29)
[2022-01-24] MEDS: predniSONE 20 MG TABLET 80 MG PO (17:29)
--- NOTE | 2022-01-24 17:52 | PM.DS.1 ---
History of Present Illness History of Present Illness Chief complaint: Possible stroke Narrative: Mr. Little is a 66-year-old very pleasant male with type 2 diabetes mellitus and CMT muscular atrophy, emphysema started noticing left facial weakness and also palsy this morning.? Patient having some vision difficulties 7 days back.? Patient had a back sprain 9 days back where he was prescribed cyclobenzaprine and continued to improve with the use of that medication.? Patient was started on Ozempic 2 weeks back for his diabetes.? On further questioning patient confirms feeling dizzy, more unsteady gait, than usual, difficulty in reading secondary to blurred vision most likely started 7 days ago.? Yesterday his friends told him that his left side of the face is droopy and probably having a stroke.? Patient came to the ER for further evaluation after his confirmed that his left side of the face is not looking normal.? In the ER patient did not show any other neurological symptoms.? Patient denies any tingling numbness or other weakness.? He he denies any falls or head trauma.? He denies any tingling numbness anywhere else in the body.? Patient did not had any such similar symptoms in the past.? All other systems has been reviewed negative. Discharge Providers Provider Date of admission: 01/23/22 23:50 Discharge Date: 01/24/22 Primary care physician: Jamal Odonnell MD Discharge provider: Mel Logan MD Summary Hospital Course Discharge Diagnosis: Assessment: 1. Valentino's palsy 2. TIA rule-out 3. DM II 4. Hyperlipidemia Plan: 1. Will discharge on PO prednisone 60 mg once daily for 7 days, along with Valtrex 1000 mg tid for 7 days. 2. Brain imaging thus far unremarkable. Echocardiogram with bubble study unremarkable. 3. Insulin sliding scale inpatient. 4. Will continue home atherosclerotic protecting medications. Exam Vital Signs (past 8 hours): - 01/24/22 11:07 01/24/22 12:00 01/24/22 16:00 Temperature 97.4 F L 97.8 F Pulse Rate 74 78 Respiratory Rate 14 17 Blood Pressure 119/77 122/70 Pulse Oximetry 97 94 94 Oxygen Delivery Method Room Air Oxygen Flow Rate 0 Objective Labs Result Diagrams: 01/23/22 21:55 01/23/22 21:55 Labs: Laboratory Results - last 24 hr 01/23/22 01/23/2201/23/22 21:55 21:55 21:55 WBC 7.3 RBC 5.54 Hgb 16.3 Hct 47.5 MCV 85.7 MCH 29.4 MCHC 34.4 RDW 14.4 Plt Count 190 Neut % (Auto) 59.1 Lymph % (Auto) 30.3 [place] % (Auto) 5.4 Eos % (Auto) 3.9 Baso % (Auto) 1.3 Neut # (Auto) 4300 Lymph # (Auto) 2200 [place] # (Auto) 400 Eos # (Auto) 300 Baso # (Auto) 100 PT 11.7 INR 1.0 APTT 37 H Sodium 137 Potassium 4.1 Chloride 106 Carbon Dioxide 21 L BUN 18 Creatinine 0.96 Estimated GFR > 60 BUN/Creatinine Ratio 18.8 Glucose 129 H Calcium 9.2 Total Bilirubin 0.6 AST 36 ALT 30 Alkaline Phosphatase 50 Total Creatine Kinase 102 CK-MB (CK-2) 1.81 CK-MB (CK-2) Rel Index 1.8 Troponin I < 0.012 Total Protein 7.3 Albumin 4.3 Globulin 3.0 Albumin/Globulin Ratio 1.4 Lipase 71 Ethyl Alcohol < 10 SARS-CoV-2 (PCR) 01/23/22 23:50 WBC RBC Hgb Hct MCV MCH MCHC RDW Plt Count Neut % (Auto) Lymph % (Auto) [place] % (Auto) Eos % (Auto) Baso % (Auto) Neut # (Auto) Lymph # (Auto) [place] # (Auto) Eos # (Auto) Baso # (Auto) PT INR APTT Sodium Potassium Chloride Carbon Dioxide BUN Creatinine Estimated GFR BUN/Creatinine Ratio Glucose Calcium Total Bilirubin AST ALT Alkaline Phosphatase Total Creatine Kinase CK-MB (CK-2) CK-MB (CK-2) Rel Index Troponin I Total Protein Albumin Globulin Albumin/Globulin Ratio Lipase Ethyl Alcohol SARS-CoV-2 (PCR) Negative [facility] Medical History Bipolar I disorder Bronchitis with chronic airway obstruction (~11/2017) Charcot Dania Tooth muscular atrophy Chronic post-traumatic stress disorder (PTSD) Facial palsy Pulmonary emphysema Surgical History History of appendectomy History of total right hip replacement Social History details: Adopted, family history unknown household members: significant other Smoking Status: Former smoker substance use type: former substance user Discharge Assessment & Plan Assessment and Plan Assessment: Assessment: 1. Valentino's palsy 2. TIA rule-out 3. DM II 4. Hyperlipidemia Plan: 1. Will discharge on PO prednisone 60 mg once daily for 7 days, along with Valtrex 1000 mg tid for 7 days. 2. Brain imaging thus far unremarkable. Echocardiogram with bubble study unremarkable. 3. Insulin sliding scale inpatient. 4. Will continue home atherosclerotic protecting medications. Discharge Plan Discharge Plan Patient Disposition: Home Discharge orders & Medications Prescriptions: New prednisone 20 mg tablet 60 mg PO DAILY 7 Days Qty: 21 0RF valacyclovir 500 mg tablet 1,000 mg PO Q8H 7 Days Qty: 42 0RF Continued atorvastatin 40 mg tablet See Rx Instructions .ROUTE .COMPLEX Qty: 30 11RF Dose Instruction: TAKE ONE TABLET BY MOUTH EVERY DAY Rx Instructions: TAKE ONE TABLET BY MOUTH EVERY DAY Jardiance 25 mg tablet See Rx Instructions .ROUTE .COMPLEX Qty: 30 5RF Dose Instruction: TAKE ONE TABLET BY MOUTH EVERY MORNING --STOP GLIPIZIDE-- Rx Instructions: TAKE ONE TABLET BY MOUTH EVERY MORNING --STOP GLIPIZIDE-- cholecalciferol (vitamin D3) 25 mcg (1,000 unit) capsule 25 mcg PO DAILY Qty: 30 11RF Ozempic 0.25 mg or 0.5 mg(2 mg/1.5 mL) pen injector 0.25 mg SUBCUT 0RF metformin 1,000 mg tablet 1,000 mg PO BID 0RF aspirin [Enteric Coated Aspirin] 81 mg tablet,delayed release (DR/EC) 81 mg PO DAILY 0RF cyclobenzaprine 5 mg tablet 5 - 10 mg PO TID PRN (Reason: muscle spasm) Qty: 40 0RF Rx Instructions: use lowest effective dose nitroglycerin 0.4 mg tablet, sublingual 0.4 mg sublingual Q5M PRN (Reason: chest pain) Qty: 30 3RF Rx Instructions: do not exceed 3 doses per episode Follow up/Referrals: Jamal Odonnell MD [Primary Care Provider] - Visit Report/Discharge Packet Instructions: Valentino Palsy, Echocardiogram, DI for Transient Ischemic Attack Discharge Data Primary Care Provider: Jamal Odonnell Attending Provider: Evi Castro
--- NOTE | 2022-01-24 18:19 | PC.NURSE ---
Discharge: Pt feels ready to d/c to home. Given meds prior to leaving. Prednisone may make him feel a little shaky. Spouse here at time of teaching. Reviewed d/c packet. Questions answered. No need for priority load, [place]. Pt d/c to home via taxi.
== END 2022-01-24 18:00 | disposition home or self-care (01) ==
LOC: ED 23:22 → AC 23:51
PROVIDERS: Admitting Provider Family Medicine; Emergency Provider Emergency Medicine; PCP Family Medicine; Referring Provider Emergency Medicine; Visit Provider Family Medicine
DX: R29.810 Facial weakness (principal); R29.703 NIHSS score 3; R47.1 Dysarthria and anarthria; R42 Dizziness and giddiness; H53.9 Unspecified visual disturbance; G60.0 Hereditary motor and sensory neuropathy; E11.9 Type 2 diabetes mellitus without complications; Z79.84 Long term (current) use of oral hypoglycemic drugs; E78.5 Hyperlipidemia, unspecified; J43.9 Emphysema, unspecified
CPT/HCPCS: 36415; 70450; 70496; 70498; 70551; 80053; 80320; 82550; 82553; 82962; 83690; 84484; 85025; 85610; 85730; 87635; 93005; 99284; C9803; G0378; C8929; Q9967

== ENCOUNTER → 2022-02-03 09:40 | Outpatient (CLI) | payer MEDICARE, SELFPAY ==
[2022-01-24 01:13] VITALS: BMI 30.7
[2022-02-03 18:26] LABS: Cholesterol 102 mg/dL (140-199); HDL Cholesterol 27 mg/dL (40-60); LDL Cholesterol Calculated 43 mg/dL (<100); Triglycerides 161 mg/dL (35-150)
[2022-02-03 18:27] LABS: Hemoglobin A1C% w Est Avg Glu 8.6 % (4.0-6.0)
== END ==
PROVIDERS: Physician Assistant; PCP Family Medicine; Visit Provider Physician Assistant
DX: I25.10 Atherosclerotic heart disease of native coronary artery without angina pectoris (principal); E11.65 Type 2 diabetes mellitus with hyperglycemia; E78.5 Hyperlipidemia, unspecified; Z95.5 Presence of coronary angioplasty implant and graft
CPT/HCPCS: 80061; 83036

== ENCOUNTER → 2022-02-18 11:23 | Outpatient (CLI) | payer MEDICARE, SELFPAY ==
[2022-01-24 01:13] VITALS: BMI 30.7
--- NOTE | 2022-02-19 17:20 | DIAB.MNT ---
Initial Diabetes Medical Nutrition Therapy Assessment Name: Robin Little Date: 02/18/22 Time: 1110a-4545p Dx: Type II Diabetes Provider: Ninoska Kelly presents for initial visit regarding T2DM. This visit was completed via telehealth using [employer] platform. Robin lives on [facility]. Reports PMH DM for 5-6 years. Adopted-- no FH known for DM. Recent HgA1c of 8.6% down from 10.2%. Has started increased Ozempic this week and has plan with provider for titration. Seems very motivated to make changes. Seems partner also is making diet changes. Reports irregular eating times. No consistent eating schedule. States he has focused on eliminating all sweets, juices, and grains. Eating red meat q 3 weeks. Most pro is chicken or fish, trying to heart health. Diet seems low in fiber intake. Avoids cows dairy, but he does eat goat milk based dairy. Endorses lots of veggies and baked millet bread trial. Wondering when to check BG and goals for BG. Has been able to eliminate HTN meds ?because of diet?. States cholesterol has improved with new diet. Reports reducing sodium intake. Sustainability of diet: challenges varying diet, gets bored with diet Wants to search for DM and heart healthy recipes. States his biggest barriers is that he is a night owl and managing portions. Wake: 730-830a Diet Recall: 11a-12p: smoothie -- supplement antiox and super greens smoothie, goat yogurt, berries, almond milk 3-4p: 10-15 non-grain crackers and goat cheese 7p: salad, chicken 10-11p: chips, cheese 1-2 hours later apple Beverages: water x 70 oz, 2c coffee per day, was drinking a lot of carbonated water (no longer), 2x per week diet beverages Anthropometrics: Ht: 6'6 Wt: 275# reported Weight history: Personal goal: 240-245# down from previous 298# UBW: 290#s Highest: 2-3 years ago 314# Physical Activity: barriers hip pain, lumbar issues, h/o hip replacement. Has treadmill at home. Trying to stay active with ADLs. 10-15 min of walking sometimes difficult. States he cannot do stationary bike. Does kyak and can do some UE exercise, does have a right shoulder injury. Self-Monitoring Blood Glucose: Checking 1-2 x per day: FBG and afternoon or evening randomly FBG high 252 ; lowest 87, 94 ; this week 108 124 116 131 140 129 119 107 today after eating sometimes (unclear how long after eating) 140-150 with highest 170 ?couple? hours after eating 144 mg/dL recently Seems most BG in goal. 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 Provided appropriate educational handouts. Discussed the following topics: Completed intake assessment. Discussed barriers to care. HgA1c hx self-monitoring: how often, and when to check. Suggested checking at different times to evaluate meals Plate Method and sustainability of diet Role of physical activity and following guidelines for safety Created SMART goals for patient self-care and success. Goals: Check BG 1-2 hours pc Add fiber send handout Follow-up: ROSENDO GUILLEN follow-up in 4 weeks. Robin seems to be doing well with current regimen. His diet seems to have quite a bit of restrictions, but he feels this is necessary at this time. Will cont to evaluate. Treva Serrato RDN, [facility] Certified Diabetes Care and Physicist [employer] [place] P: [phone] Thank you for this referral
== END ==
PROVIDERS: PCP Family Medicine; Referring Provider Physician Assistant; Visit Provider Physician Assistant
DX: E11.9 Type 2 diabetes mellitus without complications (principal); Z71.3 Dietary counseling and surveillance; Z79.84 Long term (current) use of oral hypoglycemic drugs
CPT/HCPCS: 97802

== ENCOUNTER → 2022-04-23 11:00 | Outpatient (CLI) | payer MEDICARE, SELFPAY ==
--- NOTE | 2022-04-30 10:12 | DIAB.FU ---
Follow-up Diabetes Education Assessment Name: Robin Little Date: 04/23/22 Time: 11a-12p Dx: Type II Diabetes Provider: Ninoska Kelly presents today for virtual follow-up via [email or web address] platform. States he is still taking 0.5mg Ozempic weekly. Has not increased to 1mg. Reports this is primarily due to skipping a week and a half of Ozempic. Reports there is no reason in particular as to why he has skipped, just busy schedule lately. Likes taking Ozempic. Feels that it is helpful in managing BG. Has 3 x0.5 doses left. Plans to message provider in two weeks for the 1mg dose. May be able to stay at 1mg given good glycemic management on even the 0.5mg. States this has not been a good month due to depression and anxiety. Bipolar one diagnosis per report. Also, managing medical bills. what seems to help is talking about it with a friend/mentor. Motivation for managing DM: Multiple health issues. Diagnosed with neuropathy at age 35. Reports balance issues. But Dm ?I can control?. Feels that managing diabetes to not exacerbate current nerve damage is a priority. Today he would like to discuss DM complication risk and ways to reduce. Sleeping more lately. 8 hours per night. Diet: Strawberries for dessert. Dinner: baked potato with salmon 6oz Eating breakfast alone without focus on a screen. Has been working on reducing protein portion Eating more fiber: variety nuts, has not tried quinoa. Has been roasting veggies. No stirfry veggies lately. Checked out a few new recipes, but overall he is on the same diet. Checking food labels for net carbs. Eating chips less often. Anthropometrics: Wt: not discussed Weight history: Personal goal: 240-245# down from previous 298# UBW: 290#s Highest: 2-3 years ago 314# Physical Activity: Not discussed today Self-Monitoring Blood Glucose: Not currently checking regularly. Falling asleep before BG checks after meals sometimes. Last visit most readings were in goal with 0.5 Ozempic dose. Some elevations postprandially last visit. 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 Provided appropriate educational handouts. Discussed the following topics: Recent barriers to DM management Motivation to managing DM Medication management plan Review of general nutrition recommendations and current intake Prevention of complications: foot care, dental and eye appointments, kidney and heart health, neuropathy, vaccination recommendations After review of complication risk and reduction he has some concerns about PAD vs CMT dx. Encouraged him to discuss further with PCP. He agreed. Created SMART goals for patient self-care and success. Goals: Practice label reading for net carbs- met Start up stir frys again or roasted veggies- met Try some new recipes - met Try eating more mindfully- met Message PCP for 1mg dose in two weeks- new Take ozempic today- new Chat with PCP about PAD vs CMT- new Check FBG and some 1-2 hour BG. Email them to me next week- new Follow-up: ROSENDO GUILLEN follow-up in 4 weeks Treva Serrato RDN, [facility] Certified Diabetes Care and Piano Bench Assembler P: [phone] Thank you for this referral
== END ==
PROVIDERS: PCP Family Medicine; Referring Provider Physician Assistant; Visit Provider Physician Assistant
DX: E11.9 Type 2 diabetes mellitus without complications (principal); Z71.3 Dietary counseling and surveillance
CPT/HCPCS: G0108

== ENCOUNTER → 2022-04-29 10:07 | Outpatient (CLI) | payer MEDICARE, SELFPAY ==
--- NOTE | 2022-03-20 17:56 | DIAB.MNTFU ---
Follow-up Diabetes Medical Nutrition Therapy Assessment Name: Robin Little Date: 03/19/22 Time: 563 Dx: Type II Diabetes Robin presents for follow-up via [employer] virtual platform. States he has been busy with work. Feels unhappy about grain free chip he really enjoys. Portions have been up. Sometimes up to 60g CHO with chips in one sitting. Reports eating ?mindlessly?. Trying to be more mindful. Distracted eating, tv or reading Had previously been more mindful asking himself about his hunger prior to eating. Journaling helps per report Endorses 6-8oz PRO at meals. Low carb diet. Fiber foods he is eating includes: Berries Quinoa Nuts and seeds Wants to expand food options also. Getting tired of food choices. Interested in trying to do more cooking and getting creative Goes grocery shopping almost daily Ozempic- forgot over the weekend but just took today 0.5mg plans to increase after three week to 1 mg No significant weight changes in the last month reported Anthropometrics: Ht: 6'6 Wt: 275# reported last visit Weight history: Personal goal: 240-245# down from previous 298# UBW: 290#s Highest: 2-3 years ago 314# Physical Activity: PA down. Increased pain recently Utilizing massage to manage pain. Plans to call PT for visits. Self-Monitoring Blood Glucose: Most readings in goal. FBG: less freq checks, this morning 134 mg/dL stayed up late (high for him) 117, 120, most FBG 105-130 mg/dL 1-2 hour postprandial: Usually 171 184 181 173 168 162 190 (strawberries right after dinner, coconutmilk whipped cream) 185 184 154 171 postprandial Lowest 168 mg/dl and Highest 192 mg/dL Diabetes Medications: Metformin 1000mg BID Ozempic 0.5mg weekly (states he has increased to 0.5mg yesterday) Jardiance 25mg daily Pertinent Labs: HgA1c 8.6% Past Medical History: (Last Reviewed 01/24/22 @ 03:38 by Pastor Araya DO) Bipolar I disorder Currently not on meds Bronchitis with chronic airway obstruction (~11/2017) 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 Provided appropriate educational handouts. Discussed the following topics: Blood sugar review and trends. Impact of food intake on results. Label reading for net carbs Heart health nutrition: fiber, and sodium Physical activity plan and progress Mindful eating and avoiding distracted eating Created SMART goals for patient self-care and success. Goals: Check some BG 1-2 hours pc- met Add fiber- in progress Practice label reading for net carbs- new Start up stir frys again or roasted veggies- new Try some new recipes - new Try eating more mindfully- new Follow-up: ROSENDO GUILLEN follow-up in 4 weeks Treva Serrato RDN, [facility] Certified Diabetes Care and [employer] Dual Rate Supervisor P: [phone] Thank you for this referral
== END ==
PROVIDERS: PCP Family Medicine; Referring Provider Physician Assistant; Visit Provider Physician Assistant
DX: E11.9 Type 2 diabetes mellitus without complications (principal); Z79.84 Long term (current) use of oral hypoglycemic drugs
CPT/HCPCS: 97803

== ENCOUNTER → 2022-12-22 17:26 | Outpatient (CLI) | payer MEDICARE, MEDICAID, SELFPAY | PROVIDERS: PCP Physician Assistant; Visit Provider Physician Assistant | DX: R35.0 Frequency of micturition (principal) | CPT/HCPCS: 87086 ==

== ENCOUNTER → 2023-04-01 10:32 | Outpatient (CLI) | payer MEDICARE, MEDICAID, SELFPAY ==
[2023-04-01 19:43] LABS: Add Manual Diff / Slide Review NO; Basophils Absolute Auto 0 /uL (0-100); Basophils Percent Auto 0.5 % (0-2); Eosinophils Absolute Auto 200 /uL (0-450); Eosinophils Percent Auto 3.1 % (2-4); Hematocrit 47.4 % (41-53); Hemoglobin 16.1 g/dL (13.5-17.5); Lymphocytes Absolute Auto 2100 /uL (1100-4500); Lymphocytes Percent Auto 28.5 % (25-40); Mean Corpuscular HGB Conc 34.1 % (30-36); Mean Corpuscular Hemoglobin 30.5 PG (26-34); Mean Corpuscular Volume 89.5 fL (80-100); Monocytes Absolute Auto 400 /uL (0-900); Monocytes Percent Auto 5.1 % (3-14); Neutrophils Absolute Auto 4600 /uL (1500-7000); Neutrophils Percent Auto 62.8 % (50-75); Platelet Count 185 X10^3/uL (150-400); Red Blood Cell Count 5.29 X10^6/uL (4.5-5.9); White Blood Cell Count 7.4 X10^3/uL (4.5-11.0)
[2023-04-01 20:01] LABS: Alanine Aminotransferase 33 IU/L (<50); Albumin 4.1 g/dL (3.5-5.0); Albumin Globulin Ratio 1.6 (1.0-2.8); Alkaline Phosphatase 61 U/L (38-126); Aspartate Aminotransferase 37 IU/L (17-59); BUN Creatinine Ratio 20.2 (6-22); Bilirubin Total 0.8 mg/dL (0.2-1.3); Blood Urea Nitrogen 19 mg/dL (9-20); Calcium 9.3 mg/dL (8.4-10.2); Carbon Dioxide 25 mmol/L (22-32); Chloride 104 mmol/L (98-107); Cholesterol 107 mg/dL (140-199); Estimated Glomerular Filt Rate > 60 mL/min (>60); Globulin 2.5 g/dL (1.7-4.1); Glucose 110 mg/dL (80-110); HDL Cholesterol 30 mg/dL (40-60); HEMOLYSIS < 15 (0-50); LDL Cholesterol Calculated 46 mg/dL (<100); Potassium 4.4 mmol/L (3.4-5.1); Sodium 138 mmol/L (137-145); Total Protein 6.6 g/dL (6.3-8.2); Triglycerides 155 mg/dL (35-150)
[2023-04-01 20:20] LABS: Creatinine Urine Random 128.6 mg/dL
[2023-04-01 20:29] LABS: Prostate Specific Antigen Scrn 0.613 ng/mL (0.1-4.0)
[2023-04-01 21:12] LABS: Microalbumi Creatinin Ratio Ur 3670.2 ug/mg CR (<30)
[2023-04-03 00:23] LABS: x Labcorp Estim. Avg Glu (eAG) 137 mg/dL (.); x Labcorp Hemoglobin A1c 6.4 % (4.8-5.6)
== END ==
PROVIDERS: PCP Physician Assistant; Visit Provider Physician Assistant
DX: Z12.5 Encounter for screening for malignant neoplasm of prostate (principal); I25.10 Atherosclerotic heart disease of native coronary artery without angina pectoris; F32.A Depression, unspecified; E11.65 Type 2 diabetes mellitus with hyperglycemia; E78.5 Hyperlipidemia, unspecified; I10 Essential (primary) hypertension; Z79.899 Other long term (current) drug therapy
CPT/HCPCS: 80053; 80061; 82043; 82570; 83036; 84443; 85025; G0103

== ENCOUNTER 2023-05-10 14:48 | Emergency (ER) | payer MEDICARE, SELFPAY ==
[2023-05-10 15:14] VITALS: BP 155/74; PULSE 87; RESP 16; TEMP 36.8; O2SAT 96; BMI 31.5
--- NOTE | 2023-05-10 15:30 | DI.US.S_ITS ---
PROCEDURE: US PERIPH VENOUS LOW EXTREM RT INDICATIONS: RIGHT LEG SWELLING TECHNIQUE: Real-time imaging, as well as color and pulse Doppler interrogation, were performed of the lower extremity deep veins from the inguinal ligament to the popliteal fossa, with documentation of the visualized calf veins. COMPARISON: None. FINDINGS: The common femoral, femoral, popliteal, and the visualized calf veins are normally compressible, and free of intraluminal thrombus. Color and pulse Doppler demonstrate normal phasic intraluminal flow. There is normal augmentation response to distal compression maneuver. Edema is noted at the right ankle. IMPRESSION: No deep vein thrombosis of the right lower extremity. Dictated by: Vilma Peres M.D. on 05/10/2023 at 16:51 Approved by: Vilma Peres M.D. on 05/10/2023 at 16:52
[2023-05-10] MEDS: cephALEXin 250 MG CAPSULE 500 MG PO (18:00)
[2023-05-10 18:10] VITALS: BP 135/76; PULSE 68; RESP 16; O2SAT 96
--- NOTE | 2023-05-18 15:51 | ED_ITS ---
HPI - Skin/Abscess/Foreign Bdy <Chun Higgins PA-C - Last Filed: 05/18/23 16:00> General Chief complaint: Skin/Abscess/Foreign Body Stated complaint: sent by PCP, possible DVT or cellulitis Time Seen by Provider: 05/10/23 17:42 Source: patient Mode of arrival: Ambulatory History of Present Illness HPI narrative: 67-year-old male with Charcot Dania syndrome, diabetes, hyperlipidemia, CAD, COPD, bipolar disorder presents to the ED for right lower leg swelling and redness for 2 days. Patient was sent to the ED by the phone triage nurse to rule out a DVT or cellulitis. Patient states that he has baseline swelling as well as an ulcer to the right great toe. Patient denies numbness, tingling, weakness. Patient denies fever, chills, nausea, vomiting, chest pain, shortness of breath. Related Data Home Medications Medication Instructions Recorded Confirmed aspirin 81 mg tablet,delayed 81 mg PO DAILY 11/27/20 05/17/23 release (Enteric Coated Aspirin) Previous Rx's Medication Instructions Recorded nitroglycerin 0.4 mg sublingual 0.4 mg sublingual Q5M PRN chest 04/15/21 tablet pain #30 tabs cholecalciferol (vitamin D3) 25 25 mcg PO DAILY #30 caps 01/14/22 mcg (1,000 unit) capsule empagliflozin 25 mg tablet See Rx Instructions .Route 04/28/22 (Jardiance) .COMPLEX #30 tabs atorvastatin 40 mg tablet See Rx Instructions .Route 07/29/22 .COMPLEX #30 tabs semaglutide 0.25 mg or 0.5 mg (2 0.5 mg (0.4 mL) SUBCUT QWEEK #1.5 08/04/22 mg/1.5 mL) subcutaneous pen mL injector (Ozempic) losartan 25 mg tablet 25 mg PO DAILY #90 tabs 12/22/22 meloxicam 15 mg tablet 15 mg PO DAILY #30 tabs 03/16/23 doxazosin 1 mg tablet 1 mg PO ONCE PM #30 tabs 05/04/23 metformin 1,000 mg tablet 1,000 mg PO BID #180 tabs 05/10/23 doxycycline hyclate 100 mg capsule 100 mg PO BID #20 caps 05/17/23 methocarbamol 500 mg tablet 500 mg PO QID #60 tabs 05/17/23 Allergies Allergy/AdvReac Type Severity Reaction Status Date / Time lisinopril Allergy Cough Verified 05/17/23 14:12 lithium AdvReac Severe tremmors Verified 05/17/23 14:12 venlafaxine [From Effexor] AdvReac Severe Muscle Verified 05/17/23 14:12 stiffness and weakness. Review of Systems <Chun Higgins PA-C - Last Filed: 05/18/23 16:00> Review of Systems ROS Unobtainable: All systems reviewed & are unremarkable except as noted in HPI and below Constitutional Constitutional: Denies chills, Denies fatigue, Denies fever(s), Denies frequent falls, Denies lethargy and Denies weakness Eyes Eyes: Denies change in vision, Denies eye discharge, Denies irritation and Denies loss of vision ENT Ears, Nose, Mouth, and Throat: Denies change in voice, Denies dizziness, Denies neck pain, Denies sore throat and Denies throat swelling Cardiovascular Cardiovascular: Denies chest pain, Denies irregular heart rhythm, Denies lightheadedness, Denies palpitations, Denies dyspnea, Denies dyspnea on exertion and Denies orthopnea Respiratory Respiratory: Denies cough, Denies dyspnea, Denies dyspnea on exertion and Denies wheezing Gastrointestinal Gastrointestinal: Denies abdominal pain, Denies change in bowel habits, Denies diarrhea, Denies nausea and Denies vomiting Genitourinary Genitourinary: Denies hematuria, Denies flank pain, Denies urinary incontinence and Denies urinary urgency Musculoskeletal Musculoskeletal: Denies back pain, Denies muscle weakness, Denies neck pain, D enies numbness and Denies tingling Integumentary/Breasts Skin/Breast: Denies pruritus, Denies erythema, Denies rash and Denies wounds Comments: Right lower leg swelling, erythema. Neurologic Neurologic: Denies behavioral changes, Denies confusion, Denies dizziness, Denies frequent falls, Denies loss of vision, Denies numbness, Denies tingling and Denies weakness Psychiatric Psychiatric: Denies anxiety, Denies behavioral changes, Denies confusion, Denies depression, Denies homicidal ideation and Denies suicidal ideation Endocrine Endocrine: Denies fatigue, Denies flushing and Denies palpitations Hematologic/Lymphatic Hematologic/Lymphatic: Denies easy bruising Allergic/Immunologic Allergic/Immunologic: Denies urticaria, Denies throat swelling and Denies wheezing Patient History <Chun Higgins PA-C - Last Filed: 05/18/23 16:00> Medical History Bipolar I disorder Bronchitis with chronic airway obstruction (~11/2017) Charcot Dania Tooth muscular atrophy Chronic post-traumatic stress disorder (PTSD) Facial palsy Pulmonary emphysema Rash Surgical History History of appendectomy History of total right hip replacement Social History details: Adopted, family history unknown household members: significant other Smoking Status: Former smoker (Quit 20 years ago (2002) ) substance use type: former substance user Smoking Status: Former smoker (Quit 20 years ago (2002) ) alcohol intake frequency: 0-2 drinks per day Substance Use Type: does not use Exam <Chun Higgins PA-C - Last Filed: 05/18/23 16:00> Narrative Exam Narrative: Const General:?cooperative, healthy appearing and comfortable [facility] Head:?normal to inspection Ears:?hearing grossly normal bilaterally Nose:?external nose normal Face and sinus:?normal facial exam and sinuses nontender Mouth:?oral mucosae normal Throat:?posterior oropharynx normal Eyes General:?appearance normal, both eyes and all related structures Neck Neck:?normal visual inspection and no lymphadenopathy noted Resp Effort & Inspection:?normal respiratory effort Auscultation:?clear to auscultation bilaterally Cardio Rate:?regular rate Rhythm:?regular rhythm Integumentary There is erythema and swelling of the right lower leg. No discharge. Strength and sensation intact. Full range of motion. Neurovascularly intact. Neuro General:?patient alert, patient awake and patient oriented x3 Initial Vital Signs Initial Vital Signs: Vital Signs Temperature 98.2 F 05/10/23 15:14 Pulse Rate 87 05/10/23 15:14 Respiratory Rate 16 05/10/23 15:14 Blood Pressure 155/74 H 05/10/23 15:14 Pulse Oximetry 96 05/10/23 15:14 Oxygen Delivery Method Room Air 05/10/23 15:14 <Anastasiya Alegre DO - Last Filed: 05/18/23 19:20> Initial Vital Signs Initial Vital Signs: Vital Signs Temperature 98.2 F 05/10/23 15:14 Pulse Rate 87 05/10/23 15:14 Respiratory Rate 16 05/10/23 15:14 Blood Pressure 155/74 H 05/10/23 15:14 Pulse Oximetry 96 05/10/23 15:14 Oxygen Delivery Method Room Air 05/10/23 15:14 Course <Chun Higgins PA-C - Last Filed: 05/18/23 16:00> Orders Ordered: Discontinued Medications Cephalexin HCl (Cephalexin 250 Mg Capsule) 500 mg PO NOW ONE Stop: 05/10/23 17:51 Last Admin: 05/10/23 18:00 Dose: 500 mg Documented By: BS <Anastasiya Alegre DO - Last Filed: 05/18/23 19:20> Orders Ordered: Discontinued Medications Cephalexin HCl (Cephalexin 250 Mg Capsule) 500 mg PO NOW ONE Stop: 05/10/23 17:51 Last Admin: 05/10/23 18:00 Dose: 500 mg Documented By: JENNIFER MDM - Skin/Abscess/Foreign Bdy <Chun Higgins PA-C - Last Filed: 05/18/23 16:00> MDM Narrative Medical decision making narrative: 67-year-old male with Charcot Dania syndrome, diabetes, hyperlipidemia, CAD, COPD, bipolar disorder presents to the ED for right lower leg swelling and redness for 2 days. DVT of right lower extremity obtained with no acute findings. Patient's symptoms most consistent with cellulitis. Antibiotics prescribed. Recommend follow-up with PCP. ED return precautions discussed with patient. Patient verbalized understanding. Medical records reviewed: Yes Discharge Plan Departure Patient Disposition: Home Clinical Impression: Cellulitis Qualifiers: Site of cellulitis: extremity Site of cellulitis of extremity: lower extremity Laterality: right Qualified Code(s): L03.115 - Cellulitis of right lower limb Instructions: DI for Cellulitis -- Adult Activity Restrictions/Additional Instructions: You were evaluated in the ED today for right leg swelling and redness. The ultrasound does not show any blood clots or DVTs. Your symptoms are most consistent with a skin infection or cellulitis. You are being prescribed antibiotics for it. Please take the antibiotics as prescribed. Please follow- up with your PCP as soon as possible. Return to the ED if you have worsening symptoms, fever, chills, nausea, vomiting. Prescriptions: No Action cholecalciferol (vitamin D3) 25 mcg (1,000 unit) capsule 25 mcg PO DAILY Qty: 30 11RF Jardiance 25 mg tablet See Rx Instructions .ROUTE .COMPLEX Qty: 30 11RF Dose Instruction: TAKE ONE TABLET BY MOUTH EVERY DAY IN THE MORNING -- STOP TAKING GLIPIZIDE -- Rx Instructions: TAKE ONE TABLET BY MOUTH EVERY DAY IN THE MORNING -- STOP TAKING GLIPIZIDE -- atorvastatin 40 mg tablet See Rx Instructions .ROUTE .COMPLEX Qty: 30 5RF Dose Instruction: TAKE ONE TABLET BY MOUTH EVERY DAY Rx Instructions: TAKE ONE TABLET BY MOUTH EVERY DAY meloxicam 15 mg tablet 15 mg PO DAILY Qty: 30 2RF doxazosin 1 mg tablet 1 mg PO ONCE PM Qty: 30 0RF metformin 1,000 mg tablet 1,000 mg PO BID Qty: 180 2RF methocarbamol 500 mg tablet 500 mg PO QID MDD 4,000mg Qty: 60 0RF Rx Instructions: Take two tablets four times a day aspirin [Enteric Coated Aspirin] 81 mg tablet,delayed release (DR/EC) 81 mg PO DAILY losartan 25 mg tablet 25 mg PO DAILY Qty: 90 1RF doxycycline hyclate 100 mg capsule 100 mg PO BID Qty: 20 0RF nitroglycerin 0.4 mg tablet, sublingual 0.4 mg sublingual Q5M PRN (Reason: chest pain) Qty: 30 3RF Rx Instructions: do not exceed 3 doses per episode Ozempic 0.25 mg or 0.5 mg(2 mg/1.5 mL) pen injector 0.5 mg SUBCUT QWEEK Qty: 1.5 5RF Referrals: Leena Xiao PA-C [Primary Care Provider] - Stand Alone Forms: Patient Portal/API <Anastasiya Alegre DO - Last Filed: 05/18/23 19:20> Cosign ED Attending Sharanature Attestation: I was immediately available in the department for consultation. Documentation has been reviewed.
== END 2023-05-10 18:06 | disposition home or self-care (01) ==
PROVIDERS: Emergency Provider Student in an Organized Health Care Education/Training Program; PCP Physician Assistant
DX: L03.115 Cellulitis of right lower limb (principal); Z79.899 Other long term (current) drug therapy
CPT/HCPCS: 93971; 99283

== ENCOUNTER → 2023-05-24 09:18 | Outpatient (CLI) | payer MEDICARE, SELFPAY | PROVIDERS: PCP Family Medicine; Referring Provider Family Medicine; Visit Provider Surgery | DX: E11.621 Type 2 diabetes mellitus with foot ulcer (principal); L97.512 Non-pressure chronic ulcer of other part of right foot with fat layer exposed; G60.0 Hereditary motor and sensory neuropathy | CPT/HCPCS: 11042; 87070; 87075; 87077; 87186; 87205; 99203; 99214 ==

== ENCOUNTER → 2023-05-31 10:49 | Outpatient (CLI) | payer MEDICARE, MEDICAID, SELFPAY | PROVIDERS: PCP Family Medicine; Visit Provider Surgery | DX: E11.621 Type 2 diabetes mellitus with foot ulcer (principal); L97.512 Non-pressure chronic ulcer of other part of right foot with fat layer exposed; L84 Corns and callosities; E11.40 Type 2 diabetes mellitus with diabetic neuropathy, unspecified | CPT/HCPCS: 11042; 73630 ==

== ENCOUNTER → 2023-05-31 11:27 | Outpatient (CLI) | payer MEDICARE, SELFPAY ==
--- NOTE | 2023-05-31 11:28 | DI.RAD.S_ITS ---
PROCEDURE: XR FOOT RT MIN 3V INDICATIONS: diabetic foot ulcer, right great toe TECHNIQUE: 3 views of the foot were acquired, nonweightbearing. COMPARISON: None. FINDINGS: Bones: No fractures or dislocations. No osseous erosion, osteolysis or periosteal reaction. No suspicious bony lesions. Soft tissues: No tibiotalar joint effusion. Achilles tendon appears normal. Tiny linear hyperdensity measuring 3 mm at the plantar base of the 5th metatarsal, best seen on oblique and lateral view. IMPRESSION: 1. No acute fracture. No radiographic evidence of osteomyelitis. If there is high clinical suspicion, consider MRI for further evaluation. 2. Tiny linear hyperdensity measuring 3 mm at the plantar base of the 5th metatarsal may represent a tiny radiopaque foreign body. Correlate with physical exam. Dictated by: Amarjit Harp M.D. on 05/31/2023 at 12:50 Approved by: Amarjit Harp M.D. on 05/31/2023 at 12:56
== END ==
PROVIDERS: PCP Family Medicine; Referring Provider Surgery; Visit Provider Surgery
DX: E11.621 Type 2 diabetes mellitus with foot ulcer (principal); L97.519 Non-pressure chronic ulcer of other part of right foot with unspecified severity
CPT/HCPCS: 73630

== ENCOUNTER → 2023-06-08 10:54 | Outpatient (CLI) | payer MEDICARE, SELFPAY | PROVIDERS: PCP Family Medicine; Referring Provider Family Medicine; Visit Provider Surgery | DX: E11.621 Type 2 diabetes mellitus with foot ulcer (principal); L97.512 Non-pressure chronic ulcer of other part of right foot with fat layer exposed; E11.40 Type 2 diabetes mellitus with diabetic neuropathy, unspecified; L84 Corns and callosities | CPT/HCPCS: 11042 ==

== ENCOUNTER → 2023-06-10 11:22 | Outpatient (CLI) | payer MEDICARE, SELFPAY | PROVIDERS: PCP Family Medicine; Referring Provider Family Medicine; Visit Provider Surgery | DX: E11.621 Type 2 diabetes mellitus with foot ulcer (principal); L97.512 Non-pressure chronic ulcer of other part of right foot with fat layer exposed | CPT/HCPCS: 29445 ==

== ENCOUNTER → 2023-06-15 14:16 | Outpatient (CLI) | payer MEDICARE, SELFPAY | PROVIDERS: PCP Family Medicine; Referring Provider Family Medicine; Visit Provider Surgery | DX: E11.621 Type 2 diabetes mellitus with foot ulcer (principal); L97.512 Non-pressure chronic ulcer of other part of right foot with fat layer exposed; L84 Corns and callosities; G60.0 Hereditary motor and sensory neuropathy | CPT/HCPCS: 11042 ==

== ENCOUNTER → 2023-06-22 14:21 | Outpatient (CLI) | payer MEDICARE, SELFPAY | PROVIDERS: PCP Family Medicine; Referring Provider Family Medicine; Visit Provider Surgery | DX: E11.621 Type 2 diabetes mellitus with foot ulcer (principal); L97.512 Non-pressure chronic ulcer of other part of right foot with fat layer exposed; L84 Corns and callosities; G60.0 Hereditary motor and sensory neuropathy | CPT/HCPCS: 11042; 99213 ==

== ENCOUNTER → 2023-06-29 14:36 | Outpatient (CLI) | payer MEDICARE, SELFPAY | PROVIDERS: PCP Family Medicine; Referring Provider Family Medicine; Visit Provider Surgery | DX: E11.621 Type 2 diabetes mellitus with foot ulcer (principal); L97.512 Non-pressure chronic ulcer of other part of right foot with fat layer exposed; G60.0 Hereditary motor and sensory neuropathy; I89.0 Lymphedema, not elsewhere classified; L84 Corns and callosities | CPT/HCPCS: 11042; 99213 ==

== ENCOUNTER → 2023-07-06 15:16 | Outpatient (CLI) | payer MEDICARE, MEDICAID, SELFPAY | PROVIDERS: PCP Family Medicine; Referring Provider Family Medicine; Visit Provider Surgery | DX: L97.512 Non-pressure chronic ulcer of other part of right foot with fat layer exposed (principal); E11.621 Type 2 diabetes mellitus with foot ulcer; L84 Corns and callosities; E11.40 Type 2 diabetes mellitus with diabetic neuropathy, unspecified | CPT/HCPCS: 11042; 99212 ==

== ENCOUNTER → 2023-07-08 14:23 | Outpatient (CLI) | payer MEDICARE, MEDICAID, SELFPAY ==
[2023-07-08 20:36] LABS: Creatinine Urine Random 76.7 mg/dL; Protein (Total) Urine Random 186 mg/dL (0-12); Protein Creatinine Ratio Urine 2.42 GRAM/24H
== END ==
PROVIDERS: PCP Family Medicine; Visit Provider Family Medicine
DX: R80.9 Proteinuria, unspecified (principal); E11.65 Type 2 diabetes mellitus with hyperglycemia
CPT/HCPCS: 82570; 84156

== ENCOUNTER → 2023-07-14 14:03 | Outpatient (CLI) | payer MEDICARE, MEDICAID, SELFPAY | PROVIDERS: PCP Family Medicine; Referring Provider Family Medicine; Visit Provider Surgery | DX: L97.512 Non-pressure chronic ulcer of other part of right foot with fat layer exposed (principal); E11.621 Type 2 diabetes mellitus with foot ulcer; G60.0 Hereditary motor and sensory neuropathy; L84 Corns and callosities | CPT/HCPCS: 11042 ==

== ENCOUNTER → 2023-07-27 14:33 | Outpatient (CLI) | payer MEDICARE, MEDICAID, SELFPAY | PROVIDERS: PCP Family Medicine; Referring Provider Family Medicine; Visit Provider Surgery | DX: L97.512 Non-pressure chronic ulcer of other part of right foot with fat layer exposed (principal); E11.621 Type 2 diabetes mellitus with foot ulcer; G60.0 Hereditary motor and sensory neuropathy | CPT/HCPCS: 11042; 99213 ==

== ENCOUNTER → 2023-08-10 14:45 | Outpatient (CLI) | payer MEDICARE, MEDICAID, SELFPAY | PROVIDERS: PCP Family Medicine; Referring Provider Family Medicine; Visit Provider Surgery | DX: L97.512 Non-pressure chronic ulcer of other part of right foot with fat layer exposed (principal); E11.621 Type 2 diabetes mellitus with foot ulcer; L84 Corns and callosities | CPT/HCPCS: 11042 ==

== ENCOUNTER 2023-08-19 17:13 | Emergency (ER) | payer MEDICARE, MEDICAID, SELFPAY ==
[2023-08-19] VITALS (16 sets, daily range): BP systolic 145–198; BP diastolic 85–97; PULSE 64–81; RESP 13–28; TEMP 36.6; O2SAT 93–97; BMI 32.9
--- NOTE | 2023-08-19 17:24 | DI.RAD.S_ITS ---
PROCEDURE: XR CHEST 1V INDICATIONS: Chest pain TECHNIQUE: One view of the chest was acquired. COMPARISON: None. FINDINGS: Surgical changes and devices: None. Lungs and pleura: Lungs are clear. No pleural effusions or pneumothorax. Mediastinum: Mediastinal contours appear normal. Heart size is normal. Bones and chest wall: No suspicious bony lesions. Overlying soft tissues appear unremarkable. IMPRESSION: No acute cardiopulmonary abnormality is seen. Dictated by: Altagracia Ralph M.D. on 08/19/2023 at 18:07 Approved by: Altagracia Ralph M.D. on 08/19/2023 at 18:08
[2023-08-19 17:37] LABS: Add Manual Diff / Slide Review NO; Basophils Absolute Auto 0 /uL (0-100); Basophils Percent Auto 0.5 % (0-2); Eosinophils Absolute Auto 200 /uL (0-450); Eosinophils Percent Auto 3.2 % (2-4); Hematocrit 46.6 % (41-53); Hemoglobin 16.5 g/dL (13.5-17.5); Lymphocytes Absolute Auto 1700 /uL (1100-4500); Lymphocytes Percent Auto 28.9 % (25-40); Mean Corpuscular HGB Conc 35.3 % (30-36); Mean Corpuscular Hemoglobin 30.7 PG (26-34); Mean Corpuscular Volume 86.8 fL (80-100); Monocytes Absolute Auto 300 /uL (0-900); Monocytes Percent Auto 5.2 % (3-14); Neutrophils Absolute Auto 3700 /uL (1500-7000); Neutrophils Percent Auto 62.2 % (50-75); Platelet Count 187 X10^3/uL (150-400); Red Blood Cell Count 5.36 X10^6/uL (4.5-5.9); Red Cell Distribution Width 14.2 % (11.6-14.8)
[2023-08-19 17:57] LABS: Alanine Aminotransferase 55 IU/L (<50); Albumin 4.2 g/dL (3.5-5.0); Albumin Globulin Ratio 1.5 (1.0-2.8); Alkaline Phosphatase 52 U/L (38-126); Aspartate Aminotransferase 59 IU/L (17-59); BUN Creatinine Ratio 26.6 (6-22); Bilirubin Total 0.6 mg/dL (0.2-1.3); Blood Urea Nitrogen 25 mg/dL (9-20); Calcium 9.9 mg/dL (8.4-10.2); Carbon Dioxide 24 mmol/L (22-32); Chloride 101 mmol/L (98-107); Creatine Kinase 123 U/L (55-170); Estimated Glomerular Filt Rate > 60 mL/min (>60); Globulin 2.8 g/dL (1.7-4.1); Glucose 199 mg/dL (80-110); HEMOLYSIS 22 (0-50); Lipase 66 U/L (23-300); Potassium 4.3 mmol/L (3.4-5.1); Sodium 136 mmol/L (137-145)
[2023-08-19 18:07] LABS: Troponin I 0.053 ng/mL (0.01-0.034)
[2023-08-19 18:25] LABS: Influenza A - CEPHEID Flu A NEGATIVE (NEGATIVE); Influenza B - CEPHEID Flu B NEGATIVE (NEGATIVE); Respiratory Syncytial Virus Negative (Negative)
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
[2023-08-19 18:37] LABS: COVID-19 CEPHEID 4-PLEX PCR Negative (Negative)
[2023-08-19] MEDS: METOPROLOL IR 25 MG TABLET PO (18:56)
[2023-08-19] MEDS: ASPIRIN 81 MG CHEW TAB 324 MG PO (18:56)
[2023-08-19] MEDS: HEPARIN 5,000 UNIT/ML VIAL 5000 UNIT IV (18:56)
[2023-08-19] MEDS: NITROGLYCERIN OINT 1 INCH/GM OINT...G. 0.5 INCH TOP (18:57)
[2023-08-19] MEDS: HEPARIN DRIP 25,000 UNIT/500 ML IV.SOLN 20 UNIT IV (19:07)
[2023-08-19 19:12] LABS: PTT Partial Thromboplastin Tim 33 SECONDS (25.1-36.5)
--- NOTE | 2023-08-19 20:04 | PC.NURSE ---
Addendum entered by Татьяна Cross CNA 08/20/23 06:35: MATTE CUTTER note: Spoke to Ida at [facility]. Hoping to maybe take the patient. Took some intake information. She thinks they may have space at [facility]? She said she will make some calls and then call us back Addendum entered by Татьяна Cross CNA 08/20/23 01:19: MATTE CUTTER note: [facility]: Spoke to Danya at 0058 regarding patient transfer. Currently [facility] is boarding in their ED. Put patient in their wait list. [facility]: Spoke to Petra at 0100. They are currently boarding 12 patients in their ED. No beds. Couldn't take patients for a wait list. Updated Doctor Slack about what's going on. Addendum entered by Татьяна Cross CNA 08/20/23 00:03: MATTE CUTTER note: Spoke to Rosy at [facility] at [phone]. Gave her the patient information. Hoping to find bed Addendum entered by Татьяна Cross CNA 08/19/23 22:45: MATTE CUTTER note: [facility] 223 Spoke to Ida. Did the intake. They are full. Their intake doctor will review. Patient is on their waitlist. Addendum entered by Татьяна Cross CNA 08/19/23 22:17: MATTE CUTTER note: [facility] [address] spoke to Dennis. Patient is on their wait list. They physically have no beds currently. Told to keep trying other places and to call back at 0900 Original Note: MATTE CUTTER note: [place]: 1950 Spoke to Keron. He said their [facility] is at capacity r/t staffing. [facility]: 1951 Spoke to Lyssa. She had me fax over a face sheet. She called at 2004, they're currently at capacity, but patient is on their wait list. Thanked Lyssa for her help.
[2023-08-19 20:26] LABS: Troponin I 0.078 ng/mL (0.01-0.034)
[2023-08-19] MEDS: ATORVASTATIN 20 MG TABLET 40 MG PO (22:17)
[2023-08-20] VITALS (51 sets, daily range): BP systolic 102–175; BP diastolic 54–97; PULSE 55–82; RESP 9–27; TEMP 36.8; O2SAT 91–97
[2023-08-20 02:15] LABS: PTT Partial Thromboplastin Tim 37 SECONDS (25.1-36.5)
[2023-08-20 02:31] LABS: Troponin I 0.127 ng/mL (0.01-0.034)
[2023-08-20] MEDS: METOPROLOL IR 25 MG TABLET PO (06:29)
[2023-08-20] MEDS: LOSARTAN 50 MG TABLET PO (06:29)
[2023-08-20] MEDS: ASPIRIN EC 81 MG TABLET PO (06:29)
--- NOTE | 2023-08-20 07:25 | PC.NURSE ---
Patient insisted on walking to the bathroom from his room with [employer]. While ambulating, patient denied chest pain. I assisted patient back to bed and sat with patient to educate him on the importance of limiting his movement and stress on the heart. While sitting in bed, patient states he has had constant dull, aching chest pain he rates as 2/10. Pt expressed understanding with education to limit activity, but stated walking doesnt cause him any increase in activity. I talked with patient about using a wheel chair instead of walking as he is not wanting to use a commode. Provider notified. Patient again informed that Dr. Fontaine would prefer patient to not get out of bed and to use the urinal. Patient expressed understanding.
[2023-08-20 08:56] LABS: Add Manual Diff / Slide Review NO; Basophils Absolute Auto 100 /uL (0-100); Basophils Percent Auto 1.3 % (0-2); Eosinophils Absolute Auto 200 /uL (0-450); Eosinophils Percent Auto 3.3 % (2-4); Hematocrit 46.7 % (41-53); Lymphocytes Absolute Auto 1700 /uL (1100-4500); Lymphocytes Percent Auto 26.3 % (25-40); Mean Corpuscular HGB Conc 34.2 % (30-36); Mean Corpuscular Hemoglobin 30.1 PG (26-34); Monocytes Absolute Auto 400 /uL (0-900); Neutrophils Absolute Auto 4000 /uL (1500-7000); Neutrophils Percent Auto 63.1 % (50-75); Platelet Count 169 X10^3/uL (150-400); Red Cell Distribution Width 13.9 % (11.6-14.8); White Blood Cell Count 6.4 X10^3/uL (4.5-11.0)
[2023-08-20 09:04] LABS: PTT Partial Thromboplastin Tim 39 SECONDS (25.1-36.5)
[2023-08-20 09:06] LABS: BUN Creatinine Ratio 23.5 (6-22); Blood Urea Nitrogen 20 mg/dL (9-20); Calcium 9.4 mg/dL (8.4-10.2); Carbon Dioxide 24 mmol/L (22-32); Chloride 104 mmol/L (98-107); Estimated Glomerular Filt Rate > 60 mL/min (>60); Glucose 158 mg/dL (80-110); HEMOLYSIS < 15 (0-50); Sodium 136 mmol/L (137-145)
[2023-08-20 09:27] LABS: Troponin I 0.128 ng/mL (0.01-0.034)
--- NOTE | 2023-08-20 11:30 | PC.NURSE ---
Patient states he would like to attempt a bowel movement. Pt is refusing the bedside commode. Education was provided to patient about not wanting him ambulating. Provider notified. Pt was assisted by wheelchair to the bathroom. Pt assisted back to bed, call light in reach, bed locked and in low position.
[2023-08-20] MEDS: ACETAMINOPHEN 325 MG TABLET 975 MG PO (13:18)
[2023-08-20] MEDS: DOCUSATE 100 MG CAPSULE PO (13:23)
[2023-08-20 15:06] LABS: Troponin I 0.119 ng/mL (0.01-0.034)
[2023-08-20 16:08] LABS: PTT Partial Thromboplastin Tim 39 SECONDS (25.1-36.5)
--- NOTE | 2023-08-20 17:35 | PC.NURSE ---
Patient states he is currently having no chest pain, rating 0/10. Pt laying in bed, spouse remains at bedside. Pt denies further needs at this time.
[2023-08-20] MEDS: HEPARIN DRIP 25,000 UNIT/500 ML IV.SOLN 23 UNIT IV (18:53)
--- NOTE | 2023-08-20 19:26 | PC.NURSE ---
[facility] ruddy Gustafson RN. Janay requested we call the PCU back at [phone] to update them on [facility] ETA.
--- NOTE | 2023-08-20 19:51 | PC.NURSE ---
[facility] was called at [phone] and updated on patient's ETA around 2214.
== END 2023-08-20 19:52 | disposition short-term general hospital (02) ==
PROVIDERS: Emergency Medicine; Emergency Provider Emergency Medicine; PCP Family Medicine
DX: I21.4 Non-ST elevation (NSTEMI) myocardial infarction (principal); R07.9 Chest pain, unspecified; Z20.822 Contact with and (suspected) exposure to COVID-19
CPT/HCPCS: 0241U; 36415; 71045; 80048; 80053; 82550; 82962; 83690; 84484; 85025; 85730; 93005; 93010; 96365; 96366; 96375; 99284; J1644

== ENCOUNTER → 2023-09-06 10:57 | Outpatient (CLI) | payer MEDICARE, MEDICAID, SELFPAY | PROVIDERS: PCP Family Medicine; Referring Provider Family Medicine; Visit Provider Surgery | DX: E11.628 Type 2 diabetes mellitus with other skin complications (principal); L84 Corns and callosities; G60.0 Hereditary motor and sensory neuropathy; I25.10 Atherosclerotic heart disease of native coronary artery without angina pectoris | CPT/HCPCS: 99213 ==

== ENCOUNTER → 2023-09-20 11:42 | Outpatient (CLI) | payer MEDICARE, MEDICAID, SELFPAY | PROVIDERS: PCP Family Medicine; Referring Provider Family Medicine; Visit Provider Surgery | DX: Z86.31 Personal history of diabetic foot ulcer (principal) | CPT/HCPCS: 99212; 99213 ==

== ENCOUNTER → 2024-03-06 09:38 | Outpatient (CLI) | payer MEDICARE, MEDICAID, SELFPAY ==
[2023-12-06 13:11] VITALS: BMI 30.7
[2024-03-06 19:27] LABS: Add Manual Diff / Slide Review NO; Basophils Absolute Auto 0 /uL (0-100); Basophils Percent Auto 0.3 % (0-2); Eosinophils Absolute Auto 200 /uL (0-450); Eosinophils Percent Auto 2.7 % (2-4); Hematocrit 46.9 % (41-53); Hemoglobin 16.1 g/dL (13.5-17.5); Lymphocytes Absolute Auto 2200 /uL (1100-4500); Lymphocytes Percent Auto 35.3 % (25-40); Mean Corpuscular HGB Conc 34.2 % (30-36); Mean Corpuscular Hemoglobin 30.4 PG (26-34); Mean Corpuscular Volume 88.7 fL (80-100); Monocytes Absolute Auto 300 /uL (0-900); Monocytes Percent Auto 5.6 % (3-14); Neutrophils Absolute Auto 3500 /uL (1500-7000); Neutrophils Percent Auto 56.1 % (50-75); Platelet Count 194 X10^3/uL (150-400); Red Blood Cell Count 5.29 X10^6/uL (4.5-5.9); Red Cell Distribution Width 14.2 % (11.6-14.8); White Blood Cell Count 6.2 X10^3/uL (4.5-11.0)
[2024-03-06 19:35] LABS: Alanine Aminotransferase 45 IU/L (<50); Albumin 4.2 g/dL (3.5-5.0); Albumin Globulin Ratio 1.6 (1.0-2.8); Alkaline Phosphatase 64 U/L (38-126); Aspartate Aminotransferase 58 IU/L (17-59); Bilirubin Total 0.7 mg/dL (0.2-1.3); Blood Urea Nitrogen 31 mg/dL (9-20); Calcium 9.4 mg/dL (8.4-10.2); Carbon Dioxide 23 mmol/L (22-32); Chloride 107 mmol/L (98-107); Cholesterol 83 mg/dL (140-199); Estimated Glomerular Filt Rate > 60 mL/min (>60); Globulin 2.6 g/dL (1.7-4.1); Glucose 96 mg/dL (80-110); HDL Cholesterol 25 mg/dL (40-60); HEMOLYSIS 17 (0-50); LDL Cholesterol Calculated 31 mg/dL (<100); Potassium 4.5 mmol/L (3.4-5.1); Sodium 137 mmol/L (137-145); Total Protein 6.8 g/dL (6.3-8.2); Triglycerides 137 mg/dL (35-150)
[2024-03-06 20:10] LABS: Creatinine Urine Random 115.15 mg/dL; Protein (Total) Urine Random 147 mg/dL (0-12); Protein Creatinine Ratio Urine 1.27 GRAM/24H
== END ==
PROVIDERS: PCP Family Medicine; Visit Provider Family Medicine
DX: E11.29 Type 2 diabetes mellitus with other diabetic kidney complication (principal); E11.42 Type 2 diabetes mellitus with diabetic polyneuropathy; R80.9 Proteinuria, unspecified; E78.5 Hyperlipidemia, unspecified; I10 Essential (primary) hypertension
CPT/HCPCS: 80053; 80061; 82570; 84156; 85025

== ENCOUNTER → 2024-07-24 10:44 | Outpatient (CLI) | payer MEDICARE, MEDICAID, SELFPAY ==
[2023-12-06 13:11] VITALS: BMI 30.7
[2024-07-24 19:48] LABS: Creatinine Urine Random 86.41 mg/dL
[2024-07-24 21:03] LABS: Microalbumin Urine Random 101.2 mg/dL (0-1.6)
== END ==
PROVIDERS: PCP Family Medicine; Visit Provider Family Medicine
DX: H43.10 Vitreous hemorrhage, unspecified eye (principal); E11.29 Type 2 diabetes mellitus with other diabetic kidney complication; R80.9 Proteinuria, unspecified; E11.42 Type 2 diabetes mellitus with diabetic polyneuropathy; E11.621 Type 2 diabetes mellitus with foot ulcer; L97.509 Non-pressure chronic ulcer of other part of unspecified foot with unspecified severity; E78.5 Hyperlipidemia, unspecified
CPT/HCPCS: 82043; 82570

== ENCOUNTER → 2025-01-15 10:31 | Outpatient (CLI) | payer MEDICARE, MEDICAID, SELFPAY ==
[2023-12-06 13:11] VITALS: BMI 30.7
[2025-01-15 19:31] LABS: Hemoglobin A1C% w Est Avg Glu 7.6 % (4.0-6.0)
[2025-01-15 19:32] LABS: Alanine Aminotransferase 68 IU/L (<50); Albumin 4.6 g/dL (3.5-5.0); Albumin Globulin Ratio 1.8 (1.0-2.8); Alkaline Phosphatase 64 U/L (38-126); Aspartate Aminotransferase 67 IU/L (17-59); BUN Creatinine Ratio 21.4 (6-22); Bilirubin Total 0.7 mg/dL (0.2-1.3); Blood Urea Nitrogen 22 mg/dL (9-20); Calcium 9.8 mg/dL (8.4-10.2); Carbon Dioxide 29 mmol/L (22-32); Chloride 100 mmol/L (98-107); Estimated Glomerular Filt Rate > 60 mL/min (>60); Globulin 2.5 g/dL (1.7-4.1); Glucose 173 mg/dL (70-99); HEMOLYSIS 17 (0-50); Potassium 4.8 mmol/L (3.4-5.1); Sodium 138 mmol/L (137-145); Total Protein 7.1 g/dL (6.3-8.2)
[2025-01-15 19:59] LABS: Prostate Specific Antigen Scrn 0.711 ng/mL (0.1-4.0)
== END ==
PROVIDERS: PCP Family Medicine; Visit Provider Family Medicine
DX: Z12.5 Encounter for screening for malignant neoplasm of prostate (principal); E11.29 Type 2 diabetes mellitus with other diabetic kidney complication; R80.9 Proteinuria, unspecified; E11.42 Type 2 diabetes mellitus with diabetic polyneuropathy; H43.10 Vitreous hemorrhage, unspecified eye
CPT/HCPCS: 80053; 83036; G0103

== ENCOUNTER → 2025-01-26 09:39 | Outpatient (CLI) | payer MEDICARE, MEDICAID, SELFPAY ==
[2023-12-06 13:11] VITALS: BMI 30.7
[2025-01-26 18:00] LABS: Appearance Urine UA CLEAR; Bilirubin Urine UA NEGATIVE (NEGATIVE); Color Urine UA YELLOW; Glucose Urine UA 3+ g/dL (Negative); Ketones Urine UA NEGATIVE (NEGATIVE); Leukocyte Esterase Urine UA NEGATIVE (NEGATIVE); Nitrite Urine UA NEGATIVE (Negative); Occult Blood Urine UA NEGATIVE (Negative); Protein Urine UA 2+ (Negative); Specific Gravity Urine UA 1.025 (1.000-1.035); Urobilinogen Urine UA 0.2 E.U./dL (0.2); pH Urine UA 5.5 (4.5-8.0)
[2025-01-26 18:16] LABS: Urine Volume 10mL (spun)
[2025-01-26 18:19] LABS: Bacteria Urine None Seen; RBC Urine None Seen (0-5/HPF); Squamous Epithelial Cell Urine None Seen (0-5/HPF); WBC Urine None Seen (0-5/HPF)
[2025-01-26 18:20] LABS: Creatinine Urine Random 78.49 mg/dL; Culture Indicated Urine Cult Not Indicated; Protein (Total) Urine Random 149 mg/dL (0-12); Protein Creatinine Ratio Urine 1.89 GRAM/24H
== END ==
PROVIDERS: PCP Family Medicine; Visit Provider Family Medicine
DX: E11.29 Type 2 diabetes mellitus with other diabetic kidney complication (principal); R80.9 Proteinuria, unspecified
CPT/HCPCS: 81001; 82570; 84156

== ENCOUNTER → 2025-03-23 09:08 | Outpatient (CLI) | payer MEDICARE, MEDICAID, SELFPAY ==
[2023-12-06 13:11] VITALS: BMI 30.7
--- NOTE | 2025-03-23 09:11 | DI.RAD.S_ITS ---
PROCEDURE: XR KNEE LT 3V INDICATIONS: Left hip pain and contracture, knee contracture and pain TECHNIQUE: 3 views of the knee were acquired. COMPARISON: None. FINDINGS: Bones: No fractures or dislocations. Moderate medial and lateral tibiofemoral and patellofemoral compartment narrowing with associated osteophytosis. Chondrocalcinosis. No suspicious bony lesions. Soft tissues: No joint effusion. No suspicious soft tissue calcifications. IMPRESSION: KL grade 2 tricompartmental osteoarthritis without evidence of acute bony abnormality or significant effusion. Dictated by: Randy Neal M.D. on 03/26/2025 at 10:06 Approved by: Randy Neal M.D. on 03/26/2025 at 10:06
--- NOTE | 2025-03-23 09:11 | DI.RAD.S_ITS ---
PROCEDURE: XR HIP W PEL IF DONE BILAT 2V INDICATIONS: Left hip pain and contracture, knee contracture and pain TECHNIQUE: AP pelvis and lateral view of the hip acquired. COMPARISON: None. FINDINGS: Bones: Patient is status post right hip arthroplasty, with hardware components in expected positions. The hip joint appears congruent. The visualized bony structures appear intact. Moderate osteoarthritic degenerative changes of the left hip include joint space narrowing, marginal osteophytosis and acetabular subchondral sclerosis. Soft tissues: No suspicious soft tissue densities. IMPRESSION: Degenerative and postsurgical change without evidence of acute osseous abnormality or hardware complication. Dictated by: Randy Neal M.D. on 03/26/2025 at 10:04 Approved by: Randy Neal M.D. on 03/26/2025 at 10:05
== END ==
PROVIDERS: PCP Family Medicine; Referring Provider Family Medicine; Visit Provider Family Medicine
DX: M25.562 Pain in left knee (principal); M25.552 Pain in left hip; M17.12 Unilateral primary osteoarthritis, left knee; M11.262 Other chondrocalcinosis, left knee; M24.50 Contracture, unspecified joint; G89.29 Other chronic pain; Z96.641 Presence of right artificial hip joint; M16.12 Unilateral primary osteoarthritis, left hip; Z68.34 Body mass index [BMI] 34.0-34.9, adult
CPT/HCPCS: 20610; 73521; 73562; 99213; J1010

== ENCOUNTER → 2025-06-22 12:31 | Outpatient (CLI) | payer MEDICARE, SELFPAY ==
[2025-04-17 11:07] VITALS: BMI 30.7
[2025-06-22 19:30] LABS: Hematocrit 48.9 % (41-53); Hemoglobin 16.4 g/dL (13.5-17.5); Mean Corpuscular HGB Conc 33.6 % (30-36); Mean Corpuscular Hemoglobin 30.3 PG (26-34); Mean Corpuscular Volume 90.2 fL (80-100); Platelet Count 173 X10^3/uL (150-400)
[2025-06-22 19:38] LABS: HEMOLYSIS < 15 (0-50); Iron 104 ug/dL (49-181)
[2025-06-22 19:42] LABS: Alanine Aminotransferase 37 IU/L (<50); Albumin 4.4 g/dL (3.5-5.0); Albumin Globulin Ratio 1.7 (1.0-2.8); Alkaline Phosphatase 65 U/L (38-126); Blood Urea Nitrogen 21 mg/dL (9-20); Calcium 9.9 mg/dL (8.4-10.2); Carbon Dioxide 24 mmol/L (22-32); Chloride 105 mmol/L (98-107); Cholesterol 100 mg/dL (140-199); Estimated Glomerular Filt Rate > 60 mL/min (>60); Globulin 2.6 g/dL (1.7-4.1); Glucose 162 mg/dL (70-99); HDL Cholesterol 31 mg/dL (40-60); HEMOLYSIS < 15 (0-50); Potassium 4.1 mmol/L (3.4-5.1); Sodium 139 mmol/L (137-145); Total Protein 7.0 g/dL (6.3-8.2); Triglycerides 180 mg/dL (35-150)
[2025-06-22 19:49] LABS: Percent Iron Saturation 26 % (20-50); Total Iron Binding Capacity 404 ug/dL (261-462); Transferrin 328 mg/dL (206-381)
[2025-06-22 20:11] LABS: Protein (Total) Urine Random 109 mg/dL (0-12); Protein Creatinine Ratio Urine 1.29 GRAM/24H; Thyroid Stimulating Hormone 1.84 uIU/mL (0.47-4.68)
[2025-06-22 20:15] LABS: Ferritin 64 ng/mL (18-464)
[2025-06-22 21:18] LABS: Hemoglobin A1C% w Est Avg Glu 7.6 % (4.0-6.0)
[2025-06-26 14:09] LABS: ANA Screen, IFA Negative (.)
== END ==
PROVIDERS: PCP Family Medicine; Visit Provider Family Medicine
DX: I25.10 Atherosclerotic heart disease of native coronary artery without angina pectoris (principal); E11.36 Type 2 diabetes mellitus with diabetic cataract; E11.21 Type 2 diabetes mellitus with diabetic nephropathy; I10 Essential (primary) hypertension; E78.5 Hyperlipidemia, unspecified; K75.9 Inflammatory liver disease, unspecified
CPT/HCPCS: 80053; 80061; 82570; 82728; 83036; 83540; 83550; 84156; 84443; 85027; 86038